=== PATIENT | female | born 1955 | race Caucasian/White ===

== ENCOUNTER → 2017-02-23 | Outpatient (CLI) | payer MEDICAID ==
[2017-02-23 10:45] LABS: Basophils % (A) 1 %; CH 31.8; Eosinophils # (A) 0.1 k/uL (0-0.7); Eosinophils % (A) 2 %; HCT 40.4 % (34.0-46.0); HDW 2.85; HGB 13.1 gm/dL (11.4-16.0); Hypochromasia Slight; Luc # (Auto) 0.14; Luc % (Auto) 2; Lymphocytes # (A) 2.2 k/uL (1.0-4.8); Lymphocytes % (A) 35 %; MCH 32.3 pg (25.0-35.0); MCHC 32.4 g/dL (31.0-37.0); MCV 99.8 fL (80.0-100.0); Mean Platelet Volume 6.3; Monocytes # (A) 0.4 k/uL (0-1.0); Monocytes % (A) 6 %; Neutrophils # (A) 3.4 k/uL (1.3-7.7); Neutrophils % (A) 54 %; RBC 4.05 m/uL (3.80-5.40); RDW 13.1 % (11.5-15.5); WBC 6.3 k/uL (3.8-10.6); WBC (Perox) 6.35
[2017-02-23 11:12] LABS: ALT 25 U/L (9-52); AST 29 U/L (14-36); Alkaline Phosphatase 76 U/L (38-126); Anion Gap 9 mmol/L; Bilirubin, Delta 0.3 mg/dL (0.0-0.2); Blood Urea Nitrogen 19 mg/dL (7-17); Calcium 9.7 mg/dL (8.4-10.2); Carbon Dioxide 29 mmol/L (22-30); Chloride 105 mmol/L (98-107); Cholesterol 266 mg/dL (<200); Glucose 96 mg/dL (74-99); HDL Cholesterol 61 mg/dL (40-60); Non-African American GFR(MDRD) >60 (>60 ml/min/1.73 sqM); Phosphorous 3.6 mg/dL (2.5-4.5); Potassium 4.4 mmol/L (3.5-5.1); Sodium 143 mmol/L (137-145); Total Bilirubin 0.6 mg/dL (0.2-1.3); Total Protein 7.8 g/dL (6.3-8.2); Triglycerides 119 mg/dL (<150)
== END | disposition home or self-care (01) ==
LOC: LABWHC1 10:11
PROVIDERS: ATTEND Family Medicine
DX: Z00.00 Encounter for general adult medical examination without abnormal findings (principal); E03.9 Hypothyroidism, unspecified
CPT/HCPCS: 36415; 80053; 80061; 82248; 84100; 84443; 85025

== ENCOUNTER → 2017-11-22 | Outpatient (CLI) | payer MEDICAID ==
--- NOTE | 2017-11-22 13:27 | XR ---
EXAMINATION TYPE: XR chest 2V DATE OF EXAM: 11/22/2017 COMPARISON: 06/27/2014 HISTORY: Shortness of breath for one week TECHNIQUE: Frontal and lateral views of the chest are obtained. FINDINGS: There is new mild increased interstitial lung markings in comparison to the prior of 014. There is no focal air space opacity, pleural effusion, or pneumothorax seen. The cardiac silhou ette size is within normal limits. The osseous structures are intact. Mild multilevel degenerative changes of the thoracic spine are noted. IMPRESSION: New mild increased interstitial lung markings. These could relate to mild fluid overload or atypical pneumonia.
== END | disposition home or self-care (01) ==
LOC: RADXRMAIN 12:19
PROVIDERS: ATTEND Family Medicine
DX: J98.4 Other disorders of lung (principal); R06.02 Shortness of breath
CPT/HCPCS: 71046

== ENCOUNTER → 2017-12-02 | Outpatient (CLI) | payer MEDICAID ==
--- NOTE | 2017-12-02 20:45 | MR ---
EXAMINATION TYPE: MR brain and iac wo/w con DATE OF EXAM: 12/02/2017 COMPARISON: NONE HISTORY: Rt sided hearing loss/acoustic nerve disorder CONTRAST: Performed utilizing 9 mL intravenous Gadavist gadolinium contrast. TECHNIQUE: Multiplanar, multiecho imaging on a 3.0 Mulu magnet is performed through the brain. Atte ntion is paid to the internal auditory canals with thin section imaging. Postcontrast imaging is per formed through the internal auditory canals. FINDINGS:Craniovertebral junction is normal. The pituitary is normal. Diffusion-weighted imaging is performed. No suspicious hyperintensity is present to suggest an acute intracranial infarct or acute ischemic area. Signal within the brain has scattered areas of hyperintensity which are non-specific but could be rel ated to microvascular ischemic changes. Thin section imaging is performed through the internal auditory canals and cerebellar pontine angles. No cerebellar pontine angle masses are evident. The internal auditory canals appear normal without expansion or erosion. Postcontrast imaging was performed. No suspicious enhancement is evident within the internal audito ry canals or the included portions of the brain. Paranasal sinuses and mastoid air cells are clear. IMPRESSIONS: 1. Normal internal auditory canals. 2. Scattered subcortical punctate white matter changes, likely on the basis of chronic white matter i schemic change.
== END | disposition home or self-care (01) ==
LOC: RADMRIMAIN 14:42
PROVIDERS: ATTEND Nurse Practitioner Family
DX: R90.89 Other abnormal findings on diagnostic imaging of central nervous system (principal); H93.3X1 Disorders of right acoustic nerve; H91.91 Unspecified hearing loss, right ear
CPT/HCPCS: 82565; 70553; 36415; A9581

== ENCOUNTER → 2018-08-03 | Outpatient (CLI) | payer MEDICARE ==
[2018-08-03 12:02] LABS: Basophils % (A) 0 %; Eosinophils # (A) 0.1 k/uL (0-0.7); Eosinophils % (A) 1 %; HCT 41.3 % (34.0-46.0); HGB 13.3 gm/dL (11.4-16.0); Lymphocytes # (A) 2.1 k/uL (1.0-4.8); Lymphocytes % (A) 30 %; MCH 31.4 pg (25.0-35.0); MCHC 32.3 g/dL (31.0-37.0); MCV 97.4 fL (80.0-100.0); Mean Platelet Volume 6.6; Monocytes # (A) 0.4 k/uL (0-1.0); Monocytes % (A) 6 %; Neutrophils # (A) 4.3 k/uL (1.3-7.7); Neutrophils % (A) 61 %; Platelet Count 273 k/uL (150-450); RBC 4.24 m/uL (3.80-5.40); RDW 12.7 % (11.5-15.5); WBC 7.1 k/uL (3.8-10.6)
[2018-08-03 12:54] LABS: Albumin 4.1 g/dL (3.5-5.0); C Reactive Protein 9.6 mg/L (<10.0); Calcium 9.8 mg/dL (8.4-10.2); Potassium 4.9 mmol/L (3.5-5.1); Total Bilirubin 0.5 mg/dL (0.2-1.3); Total Protein 7.4 g/dL (6.3-8.2)
[2018-08-03 14:18] LABS: Erythrocyte Sedimentation Rate 28 mm/hr (0-20)
[2018-08-03 16:26] LABS: Rheumatoid Factor 6 IU/mL (0-15)
[2018-08-03 20:55] LABS: Cyclic Citrullinated Pep IgG NEGATIVE (NEGATIVE)
== END ==
LOC: LABWHC1 10:45
PROVIDERS: ATTEND Family Medicine
DX: I10 Essential (primary) hypertension (principal); E03.9 Hypothyroidism, unspecified; M25.50 Pain in unspecified joint
CPT/HCPCS: 36415; 80053; 80061; 84443; 85025; 85652; 86038; 86140; 86200; 86431

== ENCOUNTER → 2018-08-18 | Outpatient (CLI) | payer MEDICARE ==
--- NOTE | 2018-08-21 09:36 | MM ---
Reason for exam: screening (asymptomatic). Last mammogram was performed 11 months ago. History: Patient is postmenopausal. Family history of breast cancer in paternal cousin at age 40. Reductions of both breasts, December 2016. Took hormonal contraceptives for 5 years beginning at age 17. Took estrogen for 4 years beginning at age 43. Physical Findings: A clinical breast exam by your physician is recommended on an annual basis and results should be correlated with mammographic findings. MG 3D Screening Mammo W/Cad Bilateral CC and MLO view(s) were taken. Prior study comparison: September 29, 2017, bilateral MG 3d screening mammo w/cad. March 18, 2016, bilateral MG screening mammo w CAD. The breast tissue is heterogeneously dense. This may lower the sensitivity of mammography. There is no discrete abnormality. No significant changes when compared with prior studies. ASSESSMENT: Negative, BI-RAD 1 RECOMMENDATION: Routine screening mammogram of both breasts in 1 year.
== END | disposition home or self-care (01) ==
LOC: RADMAMWWP 09:56
PROVIDERS: ATTEND Family Medicine
DX: Z12.31 Encounter for screening mammogram for malignant neoplasm of breast (principal)
CPT/HCPCS: 77063; 77067

== ENCOUNTER → 2019-02-05 | Outpatient (CLI) | payer MEDICARE ==
--- NOTE | 2019-02-05 11:51 | XR ---
EXAMINATION TYPE: XR chest 2V DATE OF EXAM: 02/05/2019 COMPARISON: Chest x-ray November 22, 2017 HISTORY: Recent pneumonia with chest pain on exertion and shortness of breath TECHNIQUE: Frontal and lateral views of the chest are obtained. FINDINGS: Diminished inspiration is seen on current study with central vascular congestion. No new f ocal airspace opacity, pleural effusion, or pneumothorax. The cardiac silhouette size is stable and upper limits of normal. Cholecystectomy clips are redemonstrated. The osseous structures are intact. IMPRESSION: New central vascular congestion may be on basis of poor inspiration.
== END | disposition home or self-care (01) ==
LOC: RADXRMAIN 11:34
PROVIDERS: ATTEND Family Medicine
DX: I99.8 Other disorder of circulatory system (principal)
CPT/HCPCS: 71046

== ENCOUNTER → 2019-06-06 | Outpatient (CLI) | payer MEDICARE ==
--- NOTE | 2019-06-06 13:37 | XR ---
EXAMINATION TYPE: XR Hip Complete RT DATE OF EXAM: 06/06/2019 CLINICAL HISTORY: Low back pain. Right hip pain. TECHNIQUE: AP and frogleg views of the right hip are obtained. COMPARISON: None. FINDINGS: There is no acute fracture/dislocation evident in the right hip. Mild joint space narrowin g seen at the inferior femoral acetabular joint. The overlying soft tissue appears unremarkable. IMPRESSION: Mild age-related osteoarthritis of the right hip.
--- NOTE | 2019-06-06 13:39 | XR ---
EXAMINATION TYPE: XR lumbosacral spine min 4V DATE OF EXAM: 06/06/2019 CLINICAL HISTORY: Right-sided sciatic pain. TECHNIQUE: Frontal, lateral, and oblique images of the lumbar spine are obtained. COMPARISON: MRI lumbar spine dated 09/13/2011 FINDINGS: There are 5 lumbar type vertebral bodies identified. No acute fracture or dislocation. Int erval worsening of facet arthropathy, anterior marginal osteophyte and disc space narrowing throughou t the lumbar spine most severe at L5-S1. No evidence of spondylolysis. Pedicles and sacroiliac joints are appear intact. Surgical clips are seen in the right upper quadrant. Oblique views are suboptimal for neural foraminal narrowing. IMPRESSION: Interval worsening of lumbar spondylosis most severe at L5-S1. If further evaluation is r equired MRI of the lumbar spine may be obtained.
== END ==
LOC: RADXRMAIN 10:45
PROVIDERS: ATTEND Family Medicine
DX: M47.817 Spondylosis without myelopathy or radiculopathy, lumbosacral region (principal); M16.11 Unilateral primary osteoarthritis, right hip
CPT/HCPCS: 72110; 73502

== ENCOUNTER → 2019-07-19 | Outpatient (CLI) | payer MEDICARE ==
--- NOTE | 2019-07-19 15:52 | MR ---
EXAMINATION TYPE: MR lumbar spine wo con DATE OF EXAM: 07/19/2019 COMPARISON: MRI of the lumbar spine dated 09/13/2011 HISTORY: Chronic low back pain, no trauma TECHNIQUE: Multiplanar, multisequence images of the lumbar spine were acquired. FINDINGS: Lumbar spine vertebral bodies maintain normal vertebral body heights and alignment. Modic t ype II degenerative endplate changes are seen throughout. Conus medullaris is unremarkable terminatin g at L1. L1-L2: Disc desiccation without neural foraminal narrowing or spinal canal stenosis. No focal disc he rniation. L2-L3: Disc desiccation without focal disc herniation. There is also a broad-based disc bulge creatin g mild left and minimal right neural foraminal narrowing. No spinal canal stenosis. L3-L4: Broad-based disc bulge, ligamentum flavum buckling, and facet arthropathy are seen creating mi ld bilateral neural foraminal narrowing without spinal canal stenosis. L4-L5: There is a broad-based disc bulge, ligamentum flavum buckling and facet arthropathy contributi ng to mild spinal canal stenosis and mild bilateral neural from narrowing. L5-S1: There is a left eccentric broad-based disc bulge and left lateral disc herniation. Facet arthr opathy and ligamentum flavum buckling are also seen and there is mild bilateral neural foraminal narr owing without spinal canal stenosis. IMPRESSION: 1. Left lateral disc herniation at L5-S1. Mild neural foraminal narrowing is seen bilaterally at this level. 2. Degenerative disc disease at L4-L5 with ligamentum flavum buckling and facet arthropathy that also contribute to mild spinal canal stenosis and mild bilateral neural foraminal narrowing. 3. Degenerative disc disease within the remainder the lumbar spine is mild.
== END | disposition home or self-care (01) ==
LOC: RADMRIMAIN 11:59
PROVIDERS: ATTEND Family Medicine
DX: M48.061 Spinal stenosis, lumbar region without neurogenic claudication (principal); M51.27 Other intervertebral disc displacement, lumbosacral region; M51.36 Other intervertebral disc degeneration, lumbar region; M46.96 Unspecified inflammatory spondylopathy, lumbar region
CPT/HCPCS: 72148

== ENCOUNTER → 2019-08-17 | Outpatient (CLI) | payer MEDICARE ==
[2019-08-17 12:09] LABS: Basophils % (A) 0 %; Eosinophils # (A) 0.2 k/uL (0-0.7); Eosinophils % (A) 2 %; HCT 39.9 % (34.0-46.0); HGB 13.2 gm/dL (11.4-16.0); Lymphocytes # (A) 2.9 k/uL (1.0-4.8); Lymphocytes % (A) 42 %; MCH 32.2 pg (25.0-35.0); MCV 97.6 fL (80.0-100.0); Mean Platelet Volume 6.1; Monocytes # (A) 0.4 k/uL (0-1.0); Monocytes % (A) 6 %; Neutrophils # (A) 3.2 k/uL (1.3-7.7); Neutrophils % (A) 47 %; Platelet Count 266 k/uL (150-450); RBC 4.09 m/uL (3.80-5.40); RDW 12.7 % (11.5-15.5); WBC 6.8 k/uL (3.8-10.6)
[2019-08-17 16:41] LABS: African American GFR (CKD) 77.2 (60.0-200.0); Albumin 4.2 g/dL (3.80-4.90); Albumin/Globulin Ratio 1.91 (1.60-3.17); Anion Gap 8.2 mmol/L (4.00-12.00); BUN/Creat Ratio 18.89 Ratio (12.00-20.00); Carbon Dioxide 28.8 mmol/L (21.6-31.8); Chol/HDL Ratio 3.3; Globulin 2.2 g/dL (1.6-3.3); LDL Cholesterol,Calculated 152.6 mg/dL (0.0-131.0); Potassium 4.5 mmol/L (3.5-5.5); Total Bilirubin 0.4 mg/dL (0.2-1.2); Total Protein 6.4 g/dL (6.2-8.2); VLDL Calculation 15.4 mg/dL (5.00-40.00)
== END | disposition home or self-care (01) ==
LOC: LABWHC1 11:34
PROVIDERS: ATTEND Family Medicine
DX: I10 Essential (primary) hypertension (principal); E78.5 Hyperlipidemia, unspecified; E03.9 Hypothyroidism, unspecified; Z11.59 Encounter for screening for other viral diseases
CPT/HCPCS: 36415; 80053; 80061; 84443; 85025; 86803

== ENCOUNTER → 2019-08-27 | Outpatient (CLI) | payer MEDICARE ==
--- NOTE | 2019-08-28 07:55 | BD ---
EXAMINATION TYPE: Axial Bone Density DATE OF EXAM: 08/27/2019 COMPARISON: 03/05/2014 DEXA bone scan. CLINICAL HISTORY: Known osteopenia. Height: 63.2 IN Weight: 203 LBS RISK FACTORS HISTORY OF: Active: YES Diet low in dairy products/other sources of calcium: YES Postmenopausal woman: TOTAL HYST AGE 46 Take estrogen and/or progesterone medications: NOT NOW How long: TOOK HORMONES AGE 48-49 MEDICATIONS: Thyroid Medications: YES Which medication: Levothyroxine How Lon + YEARS Additional Medications: LISINOPRIL, LEVOTHYROXINE, REQUIP, KLONOPIN EXAM MEASUREMENTS: Bone mineral densitometry was performed using the [employer] System. Bone mineral density as measured about the Lumbar spine is: ----- L1-L4(G/cm2): 1.118 T Score Values are as follows: ----- L2: -1.3 ----- L3: -0.2 ----- L4: 0.5 ----- L1-L4: -0.5 Bone mineral density has: Decreased -1.9ince study of: 03/05/2014 Bone mineral density about the R hip (g/cm2): 0.862 Bone mineral density about the L hip (g/cm2): 0.809 T Score values are as follows: -----R Neck: -1.3 -----L Neck: -1.6 -----R Total: -1.1 -----L Total: -1.2 Bone mineral density has: Decreased -0.6ince study of: 03/05/2014 IMPRESSION: Osteopenia (T Score between -2.5 and -1) remains present. There remains slightly increased risk of fracture and the patient may be considered for treatment. Re-Screen 2-5 years. NOTE: T-SCORE=SD OF THE YOUNG ADULT MEAN.
--- NOTE | 2019-08-28 10:39 | MM ---
Reason for exam: screening (asymptomatic). Last mammogram was performed 1 year ago. History: Patient is postmenopausal. Family history of breast cancer in paternal cousin at age 40. Reductions of both breasts, December 2016. Took hormonal contraceptives for 5 years beginning at age 17. Took estrogen for 4 years beginning at age 43. Physical Findings: A clinical breast exam by your physician is recommended on an annual basis and results should be correlated with mammographic findings. MG 3D Screening Mammo W/Cad Bilateral CC and MLO view(s) were taken. Prior study comparison: August 18, 2018, bilateral MG 3d screening mammo w/cad. September 29, 2017, bilateral MG 3d screening mammo w/cad. There are scattered fibroglandular densities. There are benign appearing round calcifications bilaterally. Asymmetric breast tissue in the right breast, stable. There is no discrete abnormality. ASSESSMENT: Benign, BI-RAD 2 RECOMMENDATION: Routine screening mammogram of both breasts in 1 year.
== END | disposition home or self-care (01) ==
LOC: RADMAMWWP 15:15
PROVIDERS: ATTEND Family Medicine
DX: Z12.39 Encounter for other screening for malignant neoplasm of breast (principal); R92.8 Other abnormal and inconclusive findings on diagnostic imaging of breast; M85.89 Other specified disorders of bone density and structure, multiple sites
CPT/HCPCS: 77063; 77067; 77080

== ENCOUNTER → 2019-11-19 | Outpatient (CLI) | payer MEDICARE ==
--- NOTE | 2019-11-19 15:41 | P.PAINCN ---
History of Present Illness - Reason for Consult Consult date: 11/19/19 - History of Present Illness This is an initial consultation visit for this 64 was also male with a chronic history of significant low back pain, patient reported that the back pain started in 2010, she denies any initiating event but she reported pain at that time used to be improved after physical therapy and chiropractics, over the last several months he started complaining of increased intensity of the pain and the pain currently radiates to the posterior lateral aspect of her lower extremity, she denies any fever or night sweats she denies any change in the bowel movement or urination, no motor or sensory deficit, the pain is not improved with the current pain medication Ackerly and Motrin, and is not improved with physical therapy Past Medical History Past Medical History: Hypertension, Musculoskeletal Disorder, Osteoarthritis (OA), Pneumonia, Thyroid Disorder Additional Past Medical History / Comment(s): hypothyroidism, restless leg syndrome osteoporosis, pneumonia 2018, herniated disc & bulging lumbar discs History of Any Multi-Drug Resistant Organisms: None Reported Past Surgical History: Appendectomy, Bladder Surgery, Breast Surgery, Cholecystectomy, Hysterectomy, Joint Replacement, Orthopedic Surgery Additional Past Surgical History / Comment(s): arthroscopies left knee,hemorrhoidectomy;bladder suspension, hemorrhoidectomy, left knee replaced 2013, breast reduction Past Anesthesia/Blood Transfusion Reactions: Motion Sickness, Postoperative Nausea & Vomiting (PONV) Additional Past Anesthesia/Blood Transfusion Reaction / Comm: one time episode after melvi. Past Psychological History: No Psychological Hx Reported Smoking Status: Former smoker Past Alcohol Use History: None Reported Additional Past Alcohol Use History / Comment(s): quit smoker 1991, smoked 18 yrs. 1ppd Past Drug Use History: None Reported - Past Family History Mother Family Medical History: Coronary Artery Disease (CAD) Father Family Medical History: Hypertension Sister(s) Family Medical History: No Reported History Brother(s) Family Medical History: Cancer Medications and Allergies Home Medications Medication Instructions Recorded Confirmed Type Levothyroxine Sodium [Synthroid] 50 mcg PO DAILY 07/10/14 11/15/19 History clonazePAM [KlonoPIN] 0.5 mg PO HS 07/10/14 11/15/19 History Lisinopril [Zestril] 10 mg PO DAILY 10/03/14 11/15/19 History HYDROcodone/APAP 7.5-325MG [Ackerly 1 tab PO Q6HR PRN 11/15/19 11/15/19 History 7.5-325] Ibuprofen [Motrin] 600 mg PO Q8HR PRN 11/15/19 11/15/19 History rOPINIRole HCL [Requip] 1 mg PO HS 11/15/19 11/15/19 History Allergies Allergy/AdvReac Type Severity Reaction Status Date / Time Sulfa (Sulfonamide Allergy lethargy,na Verified 11/15/19 15:08 Antibiotics) usea Physical Exam REVIEW OF ORGAN SYSTEMS: CONSTITUTIONAL: No fevers or chills. No recent weight loss. EYES: denies troubles with vision. HEENT: No difficulties with hearing. No nosebleeds. No difficulty swallowing. RESPIRATORY: Denies any troubles with breathing or dyspnea on exertion. CARDIOVASCULAR: Denies any chest pain, palpitations, or recent heart attacks. GASTROINTESTINAL: Denies fatty food intolerance. Has change in bowel habits and gas bloat. GENITOURINARY: Denies any blood in urine. Has increased urinary frequency. NEUROLOGICAL: no numbness , no tingling. No seizure disorders or headaches. MUSCULOSKELETAL: Has back pain. SKIN:no skin cancer. No rash. PSYCHIATRIC: Denies current depression or suicidal thoughts. ENDOCRINE: Denies current thyroid disorders. Denies any blood sugar glucose intolerance. HEME/LYMPHATIC: Denies any lumps and bumps around the neck. History of deep venous thrombosis. ALLERGY/IMMUNOLOGY: No immunoglobulin therapy. No immune deficiencies. BREAST: Denies current breast lumps, pain or nipple discharge. Physical Examinations : Constitutiona : Cooperative , not in acute distress . HEENT : nech : supple , no Lymphadenopathy , normal thyroid size . : eyes no ptosis , no icterus, no photophobia . neurologic : Cranial nerve II to XII intact , no focal neurological deffecit . psychatric : alert , oriented X 3 , appropriate affect , intact judgment and insight . Lymphatic : no Lymphadenopathy . musculoskeltal : . Lumber spine moter stegnth lower extremities ,thigh and legs 5/5 Right side , 5/5 Left side deep tendon reflexes : normal Knee Jerk , normal ankle Jerk lumber facet Loading Test= positive Right , positive Left Range of motion of the lumbar spine Flexion 60 degrees, extension 30 degrees strait leg raising test = negative bilaterally Fabere test= negative bilaterally . Tenderness over the right sacroiliac joint Results Comments: MRI of the lumbar spine reviewed= multilevel lumbar bulging disc disease, and L5-S1 lumbar herniated disc disease and multilevel lumbar facet arthropathy Assessment and Plan Plan: Assessment and plan= lumbar herniated disc disease. Lumbar degenerative disc disease. Lumbar spondylosis with lumbar facet arthropathy without myelopathy. Patient could benefit from lumbar epidural steroid injections under fluoroscopy guidance at L5-S1 , and we'll reevaluate her response. if She has no benefit from it, and we should consider doing diagnostic medial branch block lumbar area Time with Patient: Greater than 30 PQRS Measure Charge Sheet Measure #130: Documentation of Current Meds in Medical Chart: Patient's medications documented in chart Measure #226: Tobacco Use: Screen & Cessation Intervention: Pt not a tobacco user Measure #111: Pneumonia Vaccination: Pneumococcal vaccine NOT administered or previously given Measure #47: Advance Care Plan: Advance care planning discussed & documented, pt chose/unable to give Measure #412: Opioid Treatment Agreement: No documentation of signed opioid treatment agreement Measure #408: Opioid Therapy Follow-up Evaluation: Patient had NO f/u eval minimum every 3 months during opioid therapy Measure #317: Preventitive Care & Scrn High Bld Press & F/U: Pre-hypertensive or hypertensive BP documented, pt will f/u with PCP Measure #128: Body Mass Index (BMI) Screening & Follow-up: BMI documented ABOVE normal parameters - f/u documented Measure #131: Pain Assessment & Follow-up: Pain positive & plan documented, Follow-up scheduled Measure #431: Unhealthy Alcohol Use Preventative Care & Scrn: Patient not identified as an unhealthy alcohol user PQRS Narrative: Smoking Status Former smoker Pain Intensity [Right Lower 4 Back] Scale Used Numeric (1 - 10) Hx Alcohol Use (MH) No Home Medications: Ambulatory Orders Levothyroxine Sodium [Synthroid] 50 mcg PO DAILY 07/10/14 clonazePAM [KlonoPIN] 0.5 mg PO HS 07/10/14 Lisinopril [Zestril] 10 mg PO DAILY 10/03/14 HYDROcodone/APAP 7.5-325MG [Ackerly 7.5-325] 1 tab PO Q6HR PRN 11/15/19 Ibuprofen [Motrin] 600 mg PO Q8HR PRN 11/15/19 rOPINIRole HCL [Requip] 1 mg PO HS 11/15/19
== END | disposition home or self-care (01) ==
LOC: PNWHC3 12:53
PROVIDERS: ATTEND Specialist
DX: G89.29 Other chronic pain (principal); M51.26 Other intervertebral disc displacement, lumbar region; M51.36 Other intervertebral disc degeneration, lumbar region; M47.816 Spondylosis without myelopathy or radiculopathy, lumbar region; M46.96 Unspecified inflammatory spondylopathy, lumbar region; Z87.891 Personal history of nicotine dependence; Z79.899 Other long term (current) drug therapy; Z88.2 Allergy status to sulfonamides
CPT/HCPCS: 99211

== ENCOUNTER 2019-11-29 07:39 | Day surgery (SDC) | payer MEDICARE ==
[2019-11-28 10:09] VITALS: BMI 35.4
[~2019-11-29 07:39] MED LIST: IOPAMIDOL M200 10 ML VIAL ONE; LACTATED RINGERS 1,000 ML IV SCH; LIDOCAINE 1% INJ 10MG/ML (20 ML MDV) ONE; methylPREDNISolone ACETATE 80 MG/ML 1 ML VIAL ONE
[2019-11-29 08:06] VITALS: RESP 16; TEMP 98.1
[2019-11-29 08:48] VITALS: BP 119/68; PULSE 78
--- NOTE | 2019-11-29 09:15 | FL ---
EXAMINATION TYPE: FL guided pain mgmt statistic DATE OF EXAM: 11/29/2019 CLINICAL HISTORY: Low back pain. TECHNIQUE: Fluoroscopy. COMPARISON: None. FINDINGS: Fluoroscopic guidance was provided during pain relief procedure performed by Dr. Veliz. A t otal of 4 seconds of fluoroscopic time was utilized during the procedure and 3 spot images are acquir ed. IMPRESSION: As Above.
--- NOTE | 2019-11-29 10:39 | P.PCN ---
Date of Procedure: 11/29/19 Procedure(s) Performed: PREOPERATIVE DIAGNOSIS: 1- Lumbar radiculopathy, Lumbar Degenerative Disc Diseases 2-Lumbar spondylosis with Facet arthropathy without myelopathy POSTOPERATIVE DIAGNOSIS: 1-Lumber Degenerative Disc Diseases 2-Lumbar spondylosis with Facet arthropathy without myelopathy PROCEDURE 1. Lumbar epidural steroid injection under fluoroscopic guidance at the L5-S1 level using a right paramedian approach 2. Lumbar epidurogram. ANESTHESIA: Local with 1% lidocaine 3 ml, no IV sedation was used Fluoroscopy was used for the procedure and images were saved in the radiology portion of the chart. EBL: Minimal PROCEDURE INDICATION: The patient with low back pain and radiculitis symptoms unresponsive to conservative treatment. Fluoroscopy was used to optimize visualization of the needle placement and to maximize safety. PROCEDURE DESCRIPTION / TECHNIQUE: The patient was seen and identified in the preoperative area. Risks, benefits, complications including but not limited to infections ,bleeding ,allergic reaction to the medications ,nerve damage and incomplete pain releif , and alternatives were discussed with the patient. The patient agreed to proceed with the procedure and signed the consent. Vital signs were stable. Patient was taken to the OR and time out was completed. The patient was placed in the prone position on procedure table and a pillow was placed under the abdomen to reduce lumbar lordosis. The lumbosacral area was prepped and draped in the usual sterile fashion. Vitals were closely monitored during the procedure. Using anterior-posterior fluoroscopy, the L5-S1 interlaminar space was identified and the skin over this site was marked and then infiltrated with 1% lidocaine subcutaneously. Subsequently, a 20-gauge 3.5" Tuohy epidural needle was inserted and advanced toward the epidural space using the loss of resistance technique and guided by AP and lateral/ oblique fluoroscopy. The correct needle position in the epidural space was verified with the injection of 2 mL of the water soluble contrast dye Isovue 200 contrast under live fluoroscopy, observing an excellent epidurogram. Then, after negative aspiration for blood and CSF and in the absence of paresthesias, a 5 ml mixture containing 80 mg of Depo-medrol , 3 ml of preservative free Normal Saline, and 1 ml of preservative free lidocaine 1% solution was injected and a washout epidurogram was seen. Needle was withdrawn intact, skin was cleansed, and bandages were applied. COMPLICATIONS: None DISPOSITION / PLANS: The patient was placed in a supine position and transferred to the recovery area in a stable condition for observation. There was no evidence of lower extremity motor or sensory deficit after the procedure. Patient was discharged from the recovery room after meeting discharge criteria. Home discharge instructions were given to the patient by the staff. The patient will schedule a follow up in the clinic in 2-4 weeks.
== END 2019-11-29 08:50 | disposition home or self-care (01) ==
LOC: ORPAIN 07:39
PROVIDERS: ATTEND Anesthesiology
DX: M47.26 Other spondylosis with radiculopathy, lumbar region (principal); M51.16 Intervertebral disc disorders with radiculopathy, lumbar region
CPT/HCPCS: 62323; J1040; J2001; Q9966

== ENCOUNTER → 2020-03-21 | Outpatient (CLI) | payer MEDICARE | END | disposition home or self-care (01) | LOC: LABWHC1 14:21 | PROVIDERS: ATTEND Family Medicine | DX: Z11.59 Encounter for screening for other viral diseases (principal) ==

== ENCOUNTER → 2020-03-28 | Outpatient (CLI) | payer MEDICARE | END | disposition home or self-care (01) | LOC: LABWHC1 11:17 | PROVIDERS: ATTEND Family Medicine | DX: Z11.59 Encounter for screening for other viral diseases (principal) ==

== ENCOUNTER 2020-04-01 09:52 | Day surgery (SDC) | payer MEDICARE ==
[2020-03-24 12:50] VITALS: BMI 34.5
[2020-04-01 10:09] VITALS: RESP 16; TEMP 97.2
[2020-04-01] MEDS ORDERED: IOPAMIDOL M200 10 ML VIAL ONE (10:46)
[2020-04-01] MEDS ORDERED: TRIAMCINOLONE ACETONIDE 40 MG/ML 1 ML VIAL ONE (10:46)
[2020-04-01] MEDS ORDERED: methylPREDNISolone ACETATE 40 MG/ML 1 ML VIAL ONE (10:46)
--- NOTE | 2020-04-01 11:11 | P.PCN ---
Date of Procedure: 04/01/20 Description of Procedure: PREOPERATIVE DIAGNOSIS: 1-lumbar radiculopathy 2-Lumbar spondylosis with Facet arthropathy without myelopathy POSTOPERATIVE DIAGNOSIS: Lumbar radiculopathy 2-Lumbar spondylosis with Facet arthropathy without myelopathy PROCEDURE 1. Lumbar epidural steroid injection under fluoroscopic guidance at the L5-S1 level. 2. Lumbar epidurogram. ANESTHESIA: Local with 1% lidocaine 3 ml, no IV sedation EBL: Minimal PROCEDURE INDICATION: The patient with low back pain and radiculitis symptoms unresponsive to conservative treatment. Fluoroscopy was used to optimize visualization of the needle placement and to maximize safety. PROCEDURE DESCRIPTION / TECHNIQUE: The patient was seen and identified in the preoperative area. Risks, benefits, complications including but not limited to infections ,bleeding ,allergic reaction to the medications ,nerve damage and not complete pain releife , and alternatives were discussed with the patient. The patient agreed to proceed with the procedure and signed the consent. IV was started, and vital signs were stable. Patient was taken to the OR and time out was completed. The patient was placed in the prone position on procedure table and a pillow was placed under the abdomen to reduce lumbar lordosis. The lumbosacral area was prepped and draped in the usual sterile fashion.ere closely monitored during the procedure. Conscious sedation was used during the procedure to decrease patients anxiety. Vital signs was monitered during the entire procedure. Using anterior-posterior fluoroscopy, the L5-S1 interlaminar space was identified and the skin over this site was marked and then infiltrated with 1% lidocaine subcutaneously. Subsequently, a 20-gauge Tuohy epidural needle was inserted and advanced toward the epidural space using the ``Loss of resistance technique and guided by AP and lateral fluoroscopy. The correct needle position in the epidural space was verified with the injection of 2 mL of the water soluble contrast dye Omnipaque 180 contrast and observing an excellent epidurogram with the epidural spread of the dye, after negative aspiration for blood and CSF and in the absence of paresthesias. Again after negative aspiration, a 5 ml mixture containing 40mg Kenalog and 4 ml of preservative free Normal Saline was injected and a washout of epidurogram was seen. Needle was withdrawn intact, skin was cleansed, and bandages were applied. COMPLICATIONS: None DISPOSITION / PLANS: The patient was placed in a supine position and transferred to the recovery area in a stable condition for observation. There was no evidence of lower extremity motor or sensory deficit after the procedure. Tameka mars was discharged from the recovery room after meeting discharge criteria. Home discharge instructions were given to the patient by the staff. The patient was reexamined prior to discharge. Will repeat procedure in 1-2 weeks. Consider lumbar facet injections.
[2020-04-01] MEDS ORDERED: LACTATED RINGERS 1,000 ML IV SCH (11:15)
[2020-04-01 11:19] VITALS: BP 111/67; PULSE 70
--- NOTE | 2020-04-01 12:12 | FL ---
EXAMINATION TYPE: FL guided pain mgmt statistic DATE OF EXAM: 04/01/2020 HISTORY: Fluoroscopy time 3 seconds of fluoroscopy provided. IMPRESSION: 1. Fluoroscopy time.
== END 2020-04-01 11:26 | disposition home or self-care (01) ==
LOC: ORPAIN 09:52
PROVIDERS: ATTEND Anesthesiology
DX: M47.26 Other spondylosis with radiculopathy, lumbar region (principal); Z88.1 Allergy status to other antibiotic agents; Z88.2 Allergy status to sulfonamides
CPT/HCPCS: 62323; J3301; Q9966

== ENCOUNTER 2020-04-24 08:41 | Day surgery (SDC) | payer MEDICARE ==
[2020-04-22 12:56] VITALS: BMI 33.1
[~2020-04-24 08:41] MED LIST changes: -IOPAMIDOL M200 10 ML VIAL ONE; -LIDOCAINE 1% INJ 10MG/ML (20 ML MDV) ONE; -methylPREDNISolone ACETATE 80 MG/ML 1 ML VIAL ONE
[2020-04-24 09:06] VITALS: TEMP 97.1
[2020-04-24] MEDS ORDERED: methylPREDNISolone ACETATE 40 MG/ML 1 ML VIAL ONE (09:24)
[2020-04-24] MEDS ORDERED: IOPAMIDOL M200 10 ML VIAL ONE (09:24)
--- NOTE | 2020-04-24 10:05 | P.PCN ---
Date of Procedure: 04/24/20 Procedure(s) Performed: PREOPERATIVE DIAGNOSIS: 1- Lumbar radiculopathy, Lumbar Degenerative Disc Diseases 2-Lumbar spondylosis with Facet arthropathy without myelopathy POSTOPERATIVE DIAGNOSIS: 1-Lumber Degenerative Disc Diseases 2-Lumbar spondylosis with Facet arthropathy without myelopathy PROCEDURE 1. Lumbar epidural steroid injection under fluoroscopic guidance at the L5-S1 level using a right paramedian approach 2. Lumbar epidurogram. ANESTHESIA: Local with 1% lidocaine 3 ml, no IV sedation was used Fluoroscopy was used for the procedure and images were saved in the radiology portion of the chart. EBL: Minimal PROCEDURE INDICATION: The patient with low back pain and radiculitis symptoms unresponsive to conservative treatment. Fluoroscopy was used to optimize visualization of the needle placement and to maximize safety. PROCEDURE DESCRIPTION / TECHNIQUE: The patient was seen and identified in the preoperative area. Risks, benefits, complications including but not limited to infections ,bleeding ,allergic reaction to the medications ,nerve damage and incomplete pain releif , and alternatives were discussed with the patient. The patient agreed to proceed with the procedure and signed the consent. Vital signs were stable. Patient was taken to the OR and time out was completed. The patient was placed in the prone position on procedure table and a pillow was placed under the abdomen to reduce lumbar lordosis. The lumbosacral area was prepped and draped in the usual sterile fashion. Vitals were closely monitored during the procedure. Using anterior-posterior fluoroscopy, the L5-S1 interlaminar space was identified and the skin over this site was marked and then infiltrated with 1% lidocaine subcutaneously. Subsequently, a 20-gauge 3.5" Tuohy epidural needle was inserted and advanced toward the epidural space using the loss of resistance technique and guided by AP and lateral/ oblique fluoroscopy. The correct needle position in the epidural space was verified with the injection of 2 mL of the water soluble contrast dye Isovue 200 contrast under live fluoroscopy, observing an excellent epidurogram. Then, after negative aspiration for blood and CSF and in the absence of paresthesias, a 5 ml mixture containing 80 mg of Depo-medrol , 3 ml of preservative free Normal Saline, and 1 ml of preservative free lidocaine 1% solution was injected and a washout epidurogram was seen. Needle was withdrawn intact, skin was cleansed, and bandages were applied. COMPLICATIONS: None DISPOSITION / PLANS: The patient was placed in a supine position and transferred to the recovery area in a stable condition for observation. There was no evidence of lower extremity motor or sensory deficit after the procedure. Patient was discharged from the recovery room after meeting discharge criteria. Home discharge instructions were given to the patient by the staff. The patient will schedule a follow up in the clinic in 2-4 weeks.
[2020-04-24 10:06] VITALS: RESP 16
[2020-04-24 10:13] VITALS: BP 109/54; PULSE 65
--- NOTE | 2020-04-24 11:07 | FL ---
Fluoroscopy History: EDWINAI MARCIE. 5 SECONDS FLUORO TIME.
== END 2020-04-24 10:29 | disposition home or self-care (01) ==
LOC: ORPAIN 08:41
PROVIDERS: ATTEND Anesthesiology
DX: M51.16 Intervertebral disc disorders with radiculopathy, lumbar region (principal); M47.26 Other spondylosis with radiculopathy, lumbar region; Z88.2 Allergy status to sulfonamides; Z88.1 Allergy status to other antibiotic agents
CPT/HCPCS: 62323; J1030; Q9966

== ENCOUNTER → 2020-05-28 | Outpatient (CLI) | payer MEDICARE ==
[2020-05-28 11:04] VITALS: BP 147/82; PULSE 55; RESP 18; TEMP 97.9
--- NOTE | 2020-05-28 13:09 | P.PAINPG ---
Subjective Progress Note Date: 05/28/20 This is a follow up visit for this 64 was also male with a chronic history of significant low back pain, patient reported that the back pain started in 2010, she denies any initiating event but she reported pain at that time used to be improved after physical therapy and chiropractics. We initially saw her in 10/2019 where she noted pain in the low back radiating posterior lateral aspect of her lower extremity. We felt her pain may be mediated from L5-S1 disc herniation and since then she has had L5-S1 ILESI in 11/2019 (3 weeks relief), 03/2020 (no relief), and 04/2020 (still has relief of her leg pain). She is here for followup today. her pain is primarily in her low back on the right side described as dull aching occasionally sharp. Alleviating factors include flexion and reclining. Exacerbating factors include walking and physical activity. It is worse at night after she has walked and done activity all day. Laying on her right side is also very painful. Currently her pain as a 7 out of 10. He does think that her leg pain has improved significantly with epidural steroid injections. He wonders if the one injection in March that she had divided no relief because we used analog and so Depo-Medrol and would prefer to have Depo-Medrol and any future steroid injections. she denies any fever or night sweats she denies any change in the bowel movement or urination, no motor or sensory deficit, the pain is not improved with the current pain medication Dalton and Motrin, and is not improved with physical therapy Medications and Allergies Allergies Allergy/AdvReac Type Severity Reaction Status Date / Time Sulfa (Sulfonamide Allergy lethargy,na Verified 11/15/19 15:08 Antibiotics) usea Physical Exam REVIEW OF ORGAN SYSTEMS: CONSTITUTIONAL: No fevers or chills. No recent weight loss. EYES: denies troubles with vision. HEENT: No difficulties with hearing. No nosebleeds. No difficulty swallowing. RESPIRATORY: Denies any troubles with breathing or dyspnea on exertion. CARDIOVASCULAR: Denies any chest pain, palpitations, or recent heart attacks. GASTROINTESTINAL: Denies fatty food intolerance. Has change in bowel habits and gas bloat. GENITOURINARY: Denies any blood in urine. Has increased urinary frequency. NEUROLOGICAL: no numbness , no tingling. No seizure disorders or headaches. MUSCULOSKELETAL: Has back pain. SKIN:no skin cancer. No rash. PSYCHIATRIC: Denies current depression or suicidal thoughts. ENDOCRINE: Denies current thyroid disorders. Denies any blood sugar glucose intolerance. HEME/LYMPHATIC: Denies any lumps and bumps around the neck. History of deep venous thrombosis. ALLERGY/IMMUNOLOGY: No immunoglobulin therapy. No immune deficiencies. BREAST: Denies current breast lumps, pain or nipple discharge. Physical Examinations : Constitutiona : Cooperative , not in acute distress . HEENT : nech : supple , no Lymphadenopathy , normal thyroid size . : eyes no ptosis , no icterus, no photophobia . neurologic : Cranial nerve II to XII intact , no focal neurological deffecit . psychatric : alert , oriented X 3 , appropriate affect , intact judgment and insight . Lymphatic : no Lymphadenopathy . musculoskeltal : . Lumber spine moter stegnth lower extremities ,thigh and legs 5/5 Right side , 5/5 Left side deep tendon reflexes : normal Knee Jerk , normal ankle Jerk lumber facet Loading Test= positive Right , positive Left Range of motion of the lumbar spine Flexion 60 degrees, extension 30 degrees strait leg raising test = negative bilaterally Fabere test= positive bilaterally Tenderness over the right sacroiliac joint and right low back Results Comments: MRI of the lumbar spine reviewed= multilevel lumbar bulging disc disease, and L5-S1 lumbar herniated disc disease and multilevel lumbar facet arthropathy Assessment and Plan Plan: Assessment and plan= lumbar herniated disc disease. Lumbar degenerative disc disease. Lumbar spondylosis with lumbar facet arthropathy without myelopathy. patient has had benefit with her epidural steroid injections primarily of her leg pain. However she still having dull aching low back pain that is likely facet mediated. We'll proceed with a right medial branch block at levels L4-L5 and L5-S1 as she likely has some facet mediated pain in addition to the pain mediated from her disc bulges PQRS Measure Charge Sheet Measure #226: Tobacco Use: Screen & Cessation Intervention: Pt not a tobacco user Measure #47: Advance Care Plan: Advance care planning discussed & documented, pt chose/unable to give Measure #412: Opioid Treatment Agreement: No documentation of signed opioid treatment agreement Measure #408: Opioid Therapy Follow-up Evaluation: Patient had NO f/u eval minimum every 3 months during opioid therapy Measure #317: Preventitive Care & Scrn High Bld Press & F/U: Normal blood pressure, f/u not required Measure #128: Body Mass Index (BMI) Screening & Follow-up: BMI documented within normal parameters Measure #131: Pain Assessment & Follow-up: Pain positive & plan documented Measure #431: Unhealthy Alcohol Use Preventative Care & Scrn: Patient not identified as an unhealthy alcohol user PQRS Narrative: Smoking Status Former smoker Pain Intensity [Right Lower 8 Back] Scale Used Numeric (1 - 10) Hx Alcohol Use (MH) No Home Medications: Ambulatory Orders Levothyroxine Sodium [Synthroid] 50 mcg PO DAILY 07/10/14 clonazePAM [KlonoPIN] 0.5 mg PO HS 07/10/14 HYDROcodone/APAP 7.5-325MG [Dalton 7.5-325] 1 tab PO Q6HR PRN 11/15/19 Ibuprofen [Motrin] 600 mg PO Q8HR PRN 11/15/19 rOPINIRole HCL [Requip] 1 mg PO HS 11/15/19 Mirabegron [Myrbetriq] 25 mg PO DAILY 05/28/20 Controlled Substance Measures - Controlled Substance Measures Is patient prescribed a controlled substance at discharge?: No
== END | disposition home or self-care (01) ==
LOC: PNWHC3 10:43
PROVIDERS: ATTEND Anesthesiology
DX: M51.36 Other intervertebral disc degeneration, lumbar region (principal); M47.816 Spondylosis without myelopathy or radiculopathy, lumbar region; M51.26 Other intervertebral disc displacement, lumbar region; M46.96 Unspecified inflammatory spondylopathy, lumbar region; Z87.891 Personal history of nicotine dependence; Z79.891 Long term (current) use of opiate analgesic; Z79.899 Other long term (current) drug therapy; Z79.890 Hormone replacement therapy
CPT/HCPCS: 99211

== ENCOUNTER → 2020-06-19 | Day surgery (SDC) | payer MEDICARE ==
[2020-06-13 15:40] VITALS: BMI 30.1
[~2020-06-19] MED LIST changes: +ROPIVACAINE 5MG/ML 20ML VIAL ONE; +methylPREDNISolone ACETATE 40 MG/ML 1 ML VIAL ONE
[2020-06-19 09:01] VITALS: TEMP 98.3
--- NOTE | 2020-06-19 09:35 | P.PCN ---
Date of Procedure: 06/19/20 Procedure(s) Performed: PREOPERATIVE DIAGNOSIS : 1- Lumbar spondylosis with Facet Arthropathy without myelopathy . 2- Lumber degenerative disc disease POSTOPERATIVE DIAGNOSIS: 1- Lumbar spondylosis with Facet Arthropathy without myelopathy . 2- Lumber degenerative disc disease PROCEDURE: Diagnostic Right L3 , L4 , and L5 medial branch block under fluoroscopy guidance(fluoroscopy images available in the radiology Department ) ( To target the facet joint between Right L4-5 , and L5-S1 ) ANESTHESIA: Local anesthetic only, no IV sedation EBL: Minimal COMPLICATION: None. IV FLUIDS: 100 mL of normal saline. PROCEDURE INDICATION: Chronic low back pain secondary to Facet arthropathy unresponsive to conservative treatment. PROCEDURE DESCRIPTION: the patient was seen and identified in the preop holding area , risks and benefits and possible complications of the procedure and alternative were discussed with the patient, and the patient agreed to proceed with the procedure and signed the consent IV was started and vital signs monitored during the procedure and fluoroscopy was used to maximize the benefit and accuracy of the needle placement,,, patient was taken to the procedure room and placed in prone position vital signs monitored in the back prepped with chlorhexidine X3 then under strict sterile technique using a right oblique fluoroscopy ,the junction of the transverse process and the superior articulating process of the right L3 , L4 , and L5 vertebra which corresponding to the fluoroscopy image of the eye of the Hector dog on the block side for the medial branches and subsequently , after local infiltration of skin and subcu tissuies with Ropivacaine 0.5 % , one mL at each level ,then 22-gauge Quincke-type needles , 3 needle was used , each one of them placed at the junction of the base of the transverse process and the superior articular process at the appropriate level, and the needle was advanced until the periosteum contacted, needle placement confirmed with AP oblique and lateral view and after appropriate needle placement confirmed, and after negative aspiration for heme and CSF and there was no paresthesia 1-1/2 mL of Ropivacaine 0.5% mixed with 20 mg Depo-Medrol , then half mL injected at each level after negative aspiration the needle subsequently removed . At the end of the procedure and the needles removed and a bandage applied after the skin was cleaned the cleaning solution patient taken to recovery room in stable condition and monitors in the recovery room for 20-30 minutes and discharged home in stable condition after discharge criteria met and patient will follow up with the pain clinic in 2-4 weeks note= patient complaining of pain on the right side only, she had 0 pain on the left side , for this reason we did the diagnostic block on the right side only.
[2020-06-19 09:36] VITALS: BP 103/66; PULSE 58; RESP 17
--- NOTE | 2020-06-19 10:02 | FL ---
EXAMINATION TYPE: FL guided pain mgmt statistic DATE OF EXAM: 06/19/2020 CLINICAL HISTORY: Low back pain. TECHNIQUE: Fluoroscopy. COMPARISON: None. FINDINGS: Fluoroscopic guidance was provided during pain relief procedure performed by Dr. Garcia . A total of 10 seconds of fluoroscopic time was utilized during the procedure and single spot image s are acquired. Single image acquired shows needle localization off midline at L4 and L5 levels. IMPRESSION: As Above.
== END ==
LOC: ORPAIN 08:19
PROVIDERS: ATTEND Specialist
DX: G89.29 Other chronic pain (principal); M47.816 Spondylosis without myelopathy or radiculopathy, lumbar region; M51.36 Other intervertebral disc degeneration, lumbar region; Z88.1 Allergy status to other antibiotic agents; Z88.2 Allergy status to sulfonamides
CPT/HCPCS: 64493; 64494; J1030; J2795

== ENCOUNTER 2020-07-31 08:23 | Day surgery (SDC) | payer MEDICARE ==
[2020-07-30 09:12] VITALS: BMI 30.1
[~2020-07-31 08:23] MED LIST changes: -ROPIVACAINE 5MG/ML 20ML VIAL ONE; -methylPREDNISolone ACETATE 40 MG/ML 1 ML VIAL ONE
[2020-07-31 08:53] VITALS: TEMP 98
[2020-07-31] MEDS ORDERED: ROPIVACAINE 5MG/ML 20ML VIAL ONE (09:22)
[2020-07-31] MEDS ORDERED: methylPREDNISolone ACETATE 40 MG/ML 1 ML VIAL ONE (09:22)
--- NOTE | 2020-07-31 09:36 | P.PCN ---
Date of Procedure: 07/31/20 Procedure(s) Performed: PREOPERATIVE DIAGNOSIS : 1- Lumbar spondylosis with Facet Arthropathy without myelopathy . 2- Lumber degenerative disc disease POSTOPERATIVE DIAGNOSIS: 1- Lumbar spondylosis with Facet Arthropathy without myelopathy . 2- Lumber degenerative disc disease PROCEDURE: Diagnostic Right L3 , L4 , and L5 medial branch block under fluoroscopy guidance(fluoroscopy images available in the radiology Department ) ( To target the facet joint between Right L4-5 , and L5-S1 ) ANESTHESIA: Local anesthetic only, no IV sedation EBL: Minimal COMPLICATION: None. IV FLUIDS: 100 mL of normal saline. PROCEDURE INDICATION: Chronic low back pain secondary to Facet arthropathy unresponsive to conservative treatment. PROCEDURE DESCRIPTION: the patient was seen and identified in the preop holding area , risks and benefits and possible complications of the procedure and alternative were discussed with the patient, and the patient agreed to proceed with the procedure and signed the consent IV was started and vital signs monitored during the procedure and fluoroscopy was used to maximize the benefit and accuracy of the needle placement,,, patient was taken to the procedure room and placed in prone position vital signs monitored in the back prepped with chlorhexidine X3 then under strict sterile technique using a right oblique fluoroscopy ,the junction of the transverse process and the superior articulating process of the right L3 , L4 , and L5 vertebra which corresponding to the fluoroscopy image of the eye of the Hector dog on the block side for the medial branches and subsequently , after local infiltration of skin and subcu tissuies with Ropivacaine 0.5 % , one mL at each level ,then 22-gauge Quincke-type needles , 3 needle was used , each one of them placed at the junction of the base of the transverse process and the superior articular process at the appropriate level, and the needle was advanced until the periosteum contacted, needle placement confirmed with AP oblique and lateral view and after appropriate needle placement confirmed, and after negative aspiration for heme and CSF and there was no paresthesia 1-1/2 mL of Ropivacaine 0.5% mixed with 20 mg Depo-Medrol , then half mL injected at each level after negative aspiration the needle subsequently removed . At the end of the procedure and the needles removed and a bandage applied after the skin was cleaned the cleaning solution patient taken to recovery room in stable condition and monitors in the recovery room for 20-30 minutes and discharged home in stable condition after discharge criteria met and patient will follow up with the pain clinic in 2-4 weeks note= patient complaining of pain on the right side only, she had 0 pain on the left side , for this reason we did the diagnostic block on the right side only.
[2020-07-31 09:55] VITALS: PULSE 58; RESP 16
[2020-07-31 09:57] VITALS: BP 128/54
--- NOTE | 2020-07-31 09:58 | FL ---
EXAMINATION TYPE: FL guided pain mgmt statistic DATE OF EXAM: 07/31/2020 CLINICAL HISTORY: Low back pain. TECHNIQUE: Fluoroscopy. COMPARISON: None. FINDINGS: Fluoroscopic guidance was provided during pain relief procedure performed by Dr. Garcia . A total of 9 seconds of fluoroscopic time was utilized during the procedure and two spot images ar e acquired. Images acquired shows needle localization at several levels in lower lumbar spine. IMPRESSION: As Above.
== END 2020-07-31 09:57 ==
LOC: ORPAIN 08:23
PROVIDERS: ATTEND Specialist
DX: G89.29 Other chronic pain (principal); M47.816 Spondylosis without myelopathy or radiculopathy, lumbar region; M51.36 Other intervertebral disc degeneration, lumbar region; Z88.2 Allergy status to sulfonamides; Z88.1 Allergy status to other antibiotic agents
CPT/HCPCS: 64493; 64494; J1030; J2795

== ENCOUNTER → 2020-07-31 | Outpatient (CLI) | payer MEDICARE ==
[2020-07-31 10:49] LABS: Basophils % (A) 1 %; Eosinophils # (A) 0.1 k/uL (0-0.7); Eosinophils % (A) 2 %; HCT 39.9 % (34.0-46.0); HGB 12.9 gm/dL (11.4-16.0); Lymphocytes # (A) 2.1 k/uL (1.0-4.8); Lymphocytes % (A) 32 %; MCH 33.2 pg (25.0-35.0); MCHC 32.3 g/dL (31.0-37.0); MCV 102.6 fL (80.0-100.0); Macrocytosis Slight; Mean Platelet Volume 6.7; Monocytes # (A) 0.4 k/uL (0-1.0); Monocytes % (A) 7 %; Neutrophils # (A) 3.9 k/uL (1.3-7.7); Neutrophils % (A) 58 %; Platelet Count 260 k/uL (150-450); RBC 3.89 m/uL (3.80-5.40); RDW 12.6 % (11.5-15.5); WBC 6.7 k/uL (3.8-10.6)
[2020-07-31 19:31] LABS: African American GFR (CKD) 76.7 (60.0-200.0); Albumin 4.1 g/dL (3.80-4.90); Albumin/Globulin Ratio 1.78 (1.60-3.17); Anion Gap 9.3 mmol/L (4.00-12.00); BUN/Creat Ratio 25.56 Ratio (12.00-20.00); Calcium 9.6 mg/dL (8.7-10.3); Carbon Dioxide 25.7 mmol/L (21.6-31.8); Chol/HDL Ratio 3.45; Globulin 2.3 g/dL (1.6-3.3); LDL Cholesterol,Calculated 130.8 mg/dL (0.0-131.0); Non-African American GFR(CKD) 66.2 (60.0-200.0); Potassium 4.3 mmol/L (3.5-5.5); Total Bilirubin 0.4 mg/dL (0.3-1.2); Total Protein 6.4 g/dL (6.2-8.2); VLDL Calculation 16.2 mg/dL (5.00-40.00)
== END | disposition home or self-care (01) ==
LOC: LABWHC1 10:02
PROVIDERS: ATTEND Family Medicine
DX: E78.5 Hyperlipidemia, unspecified (principal); E03.9 Hypothyroidism, unspecified; I10 Essential (primary) hypertension
CPT/HCPCS: 36415; 80053; 80061; 84443; 85025

== ENCOUNTER → 2020-08-27 | Outpatient (CLI) | payer MEDICARE ==
[2020-08-27 09:08] VITALS: BP 123/82; PULSE 69; RESP 16; TEMP 97.7
--- NOTE | 2020-08-27 09:29 | P.PN ---
Subjective Progress Note Date: 08/27/20 This is a 65-year-old lady with history of lower back and right leg pain. The patient has lumbar spondylosis and right lumbar radiculopathy. She received lumbar medial branch block twice and both injections improved her lower back pain but not her right leg pain. Improvement was felt right after the injection of the medial branches. The patient is going to see Dr. Taveras in a few weeks and to repeat her lumbar spine MRI. Patient denies new-onset weakness, bowel/bladder incontinence, or any other signs or symptoms of cauda equina syndrome. There are no signs of acute intoxication, and no indications of medication diversion or overuse. In addition to above, 13-point review of systems is also negative for chest pain, shortness of breath, changes in vision, changes in hearing, new onset weakness, abdominal pain, diarrhea, extreme fatigue, malaise, fever, skin changes, homicidal or suicidal ideation, or bowel or bladder incontinence. Vital Signs: Reviewed in EMR Gen: AAOx3, NAD HEENT: PERRLA,hearing grossly normal Pulm: resp unlabored Neck: supple, trachea midline Neuro exam of the lower extremities: Normal muscle strength bilaterally Straight leg raising test: Pedro's test: Range of motion of the lumbar spine: Facet loading test: Tenderness in the paravertebral musculature: Neuro: CN II-XII grossly intact, Imaging: Reviewed in EMR/chart Assessment: Lumbar spondylosis without myelopathy Right lumbar radiculopathy Plan: 1. Explanation: Opioid and psychological risk scores were reviewed. Diagnoses, prognoses, and multiple treatment options including but not limited to physical therapy, interventional therapies, adjuvant medical therapies, narcotic medication therapies, and surgery were discussed with the patient and all questions were answered to the patient's satisfaction. 2. Opioid agreement: Signed with the patient and the patient is warned not to use opioids while driving or before driving and not to combine opioids with benzodiazepines or alcohol. 3. Counseling: The patient was counseled extensively on SMOKING CESSATION, BODY MASS INDEX, EXERCISE. Specifically, the patient was instructed regarding the importance of smoking cessation, obesity, and exercise in the context of both chronic pain and overall health. 4. Procedures: The patient was scheduled for lumbar medial branch RFA after she sees Dr. Taveras the procedure to be done on the right side for the L3, L4, and L5 medial branches the target the L4 5 and L5-S1 facet joints 5. Consultations: None 6. Investigations: None 7. Medications: none 8. Disposition: Percent to have the above-mentioned procedure done after she sees Dr. Taveras 9. Maps were reviewed and were appropriate. Objective - Vital Signs Vital signs: Vital Signs Temp 97.7 F 08/27/20 09:02 Pulse 69 08/27/20 09:02 Resp 16 08/27/20 09:02 BP 123/82 08/27/20 09:02 Pulse Ox 98 08/27/20 09:02
== END | disposition home or self-care (01) ==
LOC: PNWHC3 08:54
PROVIDERS: ATTEND Anesthesiology
DX: M47.26 Other spondylosis with radiculopathy, lumbar region (principal)
CPT/HCPCS: 99211

== ENCOUNTER → 2020-09-01 | Outpatient (CLI) | payer MEDICARE ==
--- NOTE | 2020-09-02 09:45 | MM ---
Reason for exam: screening (asymptomatic). Last mammogram was performed 1 year ago. History: Patient is postmenopausal. Family history of breast cancer in paternal cousin at age 40. Reductions of both breasts, December 2016. Took hormonal contraceptives for 5 years beginning at age 17. Took estrogen for 4 years beginning at age 43. Physical Findings: A clinical breast exam by your physician is recommended on an annual basis and results should be correlated with mammographic findings. MG 3D Screening Mammo W/Cad Bilateral CC and MLO view(s) were taken. Prior study comparison: August 27, 2019, bilateral MG 3d screening mammo w/cad. August 18, 2018, bilateral MG 3d screening mammo w/cad. The breast tissue is heterogeneously dense. This may lower the sensitivity of mammography. There is no discrete abnormality. No significant changes when compared with prior studies. ASSESSMENT: Benign, BI-RAD 2 RECOMMENDATION: Routine screening mammogram of both breasts in 1 year.
== END | disposition home or self-care (01) ==
LOC: RADMAMWWP 09:53
PROVIDERS: ATTEND Family Medicine
DX: Z12.31 Encounter for screening mammogram for malignant neoplasm of breast (principal)
CPT/HCPCS: 77063; 77067

== ENCOUNTER → 2020-09-11 | Outpatient (CLI) | payer MEDICARE ==
--- NOTE | 2020-09-11 15:10 | MR ---
EXAMINATION TYPE: MR lumbar spine wo con DATE OF EXAM: 09/11/2020 COMPARISON: Prior lumbar MRI 07/19/2019 HISTORY: Low back pain into rt leg TECHNIQUE: Multiplanar, multisequence images of the lumbar spine were acquired. L1-L2: Normal disc appearance without desiccation. No herniation, protrusion or disc bulging. No ca nal stenosis is present. Foramina are patent bilaterally. L2-L3: Normal disc appearance without desiccation. No herniation, protrusion or disc bulging. No ca nal stenosis is present. Foramina are patent bilaterally. L3-L4: Eccentric posterior disc bulge causes anterolateral mass effect on the thecal sac towards the left. Circumferential extension of endplate disc complex encroaches somewhat on the right neural fora men within left. There is facet arthropathy with virtually ligamentum flavum causing posterior latera l mass effect on the thecal sac. L4-L5: Listhesis contributes with hypertrophic change of the facets, ligamentum flavum causes trefoil appearance of the thecal sac. No significant foraminal encroachment. Broad-based posterior disc bulg e causes only slight anterior mass effect on the thecal sac. L5-S1: Posterior broad-based disc bulge causes minimal anterior mass effect on the thecal sac. There is some facet arthropathy change. No significant foraminal encroachment or spinal stenosis. Lateral d isc herniation described in prior report shows a similar appearance and may be contributed by the spi nal curvature. Lumbar segments are intact. No paraspinal masses are identified. Conus medullaris has a normal appe arance. Lumbar vertebral bodies show preserved height, alignment without joint minimal anterolisthesi s grade 1 L4-5. There is multilevel spondylosis with endplate discogenic marrow signal change. Loss o f disc height signal is present at intervertebral levels with relative sparing of L1-L2. There is a s gilberto curvature as noted on prior exam. IMPRESSION: Degenerative disc disease and facet arthropathy is essentially stable.
== END | disposition home or self-care (01) ==
LOC: RADMRIMAIN 12:32
PROVIDERS: ATTEND Family Medicine
DX: M51.36 Other intervertebral disc degeneration, lumbar region (principal); M47.816 Spondylosis without myelopathy or radiculopathy, lumbar region
CPT/HCPCS: 72148

== ENCOUNTER → 2020-09-24 | Outpatient (CLI) | payer MEDICARE ==
--- NOTE | 2020-09-24 12:26 | XR ---
EXAMINATION TYPE: XR lumbosacral spine 5 views (including flexion and extension) DATE OF EXAM: 09/24/2020 Comparison: 06/06/2019 Clinical History: 65-year-old female M43.16 spondylolisthesis Findings: Cholecystectomy clips. Moderate stool burden. 5 lumbar type vertebral bodies. Hypertrophic facet arth ropathy throughout the lumbar spine. Moderate disc space narrowing L3-L4 and L5-S1. A fixed, trace gr iron 1 anterolisthesis L4-L5. Slightly accentuated upper lumbar lordosis. Vertebral body heights are p reserved. No new spondylolisthesis on flexion or extension. Impression: 1. Hypertrophic facet arthropathy throughout with a fixed grade 1 anterolisthesis at L4-L5. No dynami c subluxations seen. 2. Moderate degenerative disc disease L3-L4 and L5-S1. Mild at other levels. 3. No vertebral compression collapse.
== END | disposition home or self-care (01) ==
LOC: RADXRMAIN 10:37
DX: M51.36 Other intervertebral disc degeneration, lumbar region (principal); M47.816 Spondylosis without myelopathy or radiculopathy, lumbar region; M51.37 Other intervertebral disc degeneration, lumbosacral region; M43.16 Spondylolisthesis, lumbar region
CPT/HCPCS: 72110

== ENCOUNTER → 2021-02-04 | Outpatient (CLI) | payer MEDICARE ==
--- NOTE | 2021-02-04 14:53 | MR ---
EXAMINATION TYPE: MR knee RT wo con DATE OF EXAM: 02/04/2021 COMPARISON: Right knee x-ray 8 days ago. HISTORY: Rt knee pain and swelling since November per patient. TECHNIQUE: Multiplanar, multisequence imaging of the right knee is performed without IV contrast. FINDINGS: MEDIAL MENISCUS: Posterior horn has oblique increased signal extending to inferior articular surface. LATERAL MENISCUS: Anterior and posterior horns are intact without tear. CRUCIATE LIGAMENTS: The anterior and posterior cruciate ligaments are intact and unremarkable. COLLATERAL LIGAMENTS: The medial collateral ligament and lateral collateral ligament complex are inta ct and unremarkable. EXTENSOR MECHANISM: Visualized quadriceps and patellar tendons are intact. EFFUSION: Small to moderate size suprapatellar joint effusion. POPLITEAL CYST: No popliteal/giraldo cyst. TRICOMPARTMENT SPACES: Mild to moderate tricompartment joint space loss and mild spurring. CARTILAGE: Some Cartilaginous loss medial tibiofemoral compartment. No full-thickness cartilaginous d efects. BONE MARROW SIGNAL: No focal abnormal marrow signal is appreciated. OTHER: No additional significant abnormality is appreciated. IMPRESSION: 1. Oblique full-thickness tear posterior horn medial meniscus. 2. Mild to moderate tricompartment degenerative changes as detailed above. 3. Small to moderate-sized joint effusion.
== END | disposition home or self-care (01) ==
LOC: RADMRIMAIN 13:16
PROVIDERS: ATTEND Orthopaedic Surgery
DX: M23.321 Other meniscus derangements, posterior horn of medial meniscus, right knee (principal); M17.11 Unilateral primary osteoarthritis, right knee

== ENCOUNTER → 2021-03-04 | Outpatient (CLI) | payer MEDICARE ==
[2021-03-04 23:16] LABS: Basophils # (A) 0.03 X 10*3/uL (0.00-0.10); Basophils % (A) 0.5 %; Eosinophils # (A) 0.07 X 10*3/uL (0.04-0.35); Eosinophils % (A) 1.3 %; HCT 42.5 % (37.2-46.3); HGB 13.8 g/dL (12.0-15.0); Lymphocytes # (A) 2.39 X 10*3/uL (0.90-5.00); Lymphocytes % (A) 42.8 %; MCH 31.6 pg (27.0-32.0); MCHC 32.5 g/dL (32.0-37.0); MCV 97.3 fL (80.0-97.0); Mean Platelet Volume 9.6 fL (9.5-12.2); Monocytes # (A) 0.46 X 10*3/uL (0.20-1.00); Monocytes % (A) 8.2 %; Neutrophils # (A) 2.62 X 10*3/uL (1.80-7.70); Platelet Count 255 X 10*3/uL (140-440); RBC 4.37 X 10*6/uL (4.10-5.20); WBC 5.58 X 10*3/uL (4.50-10.00)
[2021-03-05 03:59] LABS: Anion Gap 8.6 mmol/L (4.00-12.00); Carbon Dioxide 27.4 mmol/L (21.6-31.8); Potassium 4.3 mmol/L (3.5-5.5)
== END | disposition home or self-care (01) ==
LOC: LABWHC1 10:03
PROVIDERS: ATTEND Orthopaedic Surgery
DX: Z01.812 Encounter for preprocedural laboratory examination (principal); M23.91 Unspecified internal derangement of right knee
CPT/HCPCS: 36415; 80051; 85025

== ENCOUNTER 2021-03-12 13:22 | Day surgery (SDC) | payer MEDICARE ==
[2021-03-09 14:29] VITALS: BMI 30.1
--- NOTE | 2021-03-11 18:06 | HP ---
HISTORY AND PHYSICAL DATE OF SURGERY: 03/12/2021 Charito Coyle is a 65-year-old patient seen with progressive right knee pain. We discussed options for treatment. She elected to proceed with right knee arthroscopy. Consent was obtained. PAST MEDICAL HISTORY: Hypothyroidism, hypertension. PAST SURGICAL HISTORY: Appendectomy, cholecystectomy, knee arthroscopy. DAILY MEDICATIONS: Levothyroxine, hydrocodone. ALLERGIES: SULFA. SOCIAL HISTORY: She denies current tobacco use. PHYSICAL EVALUATION OF THE RIGHT KNEE: Her range of motion is +1/2 to 125. Mild effusion. Tenderness, medial joint line. Positive medial Gemma's. Crepitus along the medial patellofemoral compartments with range of motion. Pain with patellofemoral compression. Ligaments stable. Hip rotation without pain. Distal neurovascular exam intact. RADIOGRAPHS: Right knee radiographs reveal some osteoarthritic changes. MRI of the right knee revealed medial meniscal tear, osteoarthritis and intraarticular effusion. IMPRESSION: 1. Internal derangement of right knee with meniscal tear. 2. Hypothyroidism. 3. Hypertension. PLAN: Right knee arthroscopy with partial meniscectomy and debridement. MMODL / IJN: [id number] /
[~2021-03-12 13:22] MED LIST changes: +DEXAMETHASONE SOD PHOSPHATE 4 MG/ML 1 ML VIAL IV ONE; +LIDOCAINE 1% (10MG/ML) FOR IV START INTRADERMA PRN; +MIDAZOLAM 2 MG/2 ML VIAL IV PRN; +ONDANSETRON 4 MG/2 ML VIAL IVP ONE
[2021-03-12] MEDS ORDERED: PROPOFOL 10 MG/ML 20 ML VIAL IV ONE (15:38)
[2021-03-12] MEDS ORDERED: MIDAZOLAM 2 MG/2 ML VIAL ONE (15:38)
[2021-03-12] MEDS ORDERED: LIDOCAINE 1% INJ 10MG/ML (20 ML MDV) ONE (15:38)
[2021-03-12] MEDS ORDERED: fentaNYL (PF) 50 MCG/ML 2 ML AMP ONE (15:38)
[2021-03-12] MEDS ORDERED: KETOROLAC 15 MG/ML 1 ML VIAL ONE (15:38)
[2021-03-12] MEDS ORDERED: BUPIVACAINE (PF) 0.25% 30 ML VIAL SQ ONE (16:04)
--- NOTE | 2021-03-12 16:35 | P.OP ---
Date of Procedure: 03/12/21 Preoperative Diagnosis: Internal derangement right knee Postoperative Diagnosis: 1. Tear medial meniscus right knee 2. Grade 2 chondromalacia medial femoral condyle right knee 3. Reactive synovitis medial, lateral and suprapatellar compartments right knee Procedure(s) Performed: 1. Arthroscopic partial medial meniscectomy right knee 2. Arthroscopic chondroplasty medial femoral condyle right knee 3. Arthroscopic partial synovectomy medial, lateral and suprapatellar compartments right knee Anesthesia: ALYSAA, local Surgeon: Hakan Galeana Estimated Blood Loss (ml): 7 Pathology: none sent Condition: stable Disposition: PACU Indications for Procedure: 65-year-old patient seen with progressive right knee pain. After treatment options were discussed, she elected to proceed with arthroscopy. Operative Findings: See description of procedure Description of Procedure: Patient was taken to the operative suite. Patient underwent a general anesthetic by the department of anesthesia. Patient was given preoperative antibiotics. The right lower extremity was placed in a well-padded arthroscopic leg sandoval. The right leg was prepped and draped in the normal sterile orthopedic fashion. A lateral parapatellar and suprapatellar incision was made. Trochars were inserted. Arthroscopy was initiated. Suprapatellar pouch revealed diffuse thick reactive synovitis. The patellofemoral joint appeared to articulate congruently. There was grade 1 chondromalacia with no osteochondral tears present. The scope was guided into the medial gutter. No loose bodies or plica were identified. The scope was then guided into the medial compartment. A medial parapatellar incision was made. Trocar inserted followed by probe. There was a complex tear involving the posterior horn of the medial meniscus. There were grade 2 chondromalacia changes of the medial femoral condyle with some osteochondral flap tears present. There was thick reactive synovitis anteriorly. I performed a partial medial meniscectomy getting down to stable meniscal tissue. I performed a chondroplasty of the medial femoral condyle getting down to stable osteochondral tissue. I performed a partial synovectomy decompressing the thick reactive synovitis. The residual meniscus was probed and found to be stable. There was good decompression of the synovitis. The residual osteochondral surface was stable. Scope and probe were then guided into the intercondylar notch. Cruciates were identified, probed and found to be stable. The scope and probe were then guided into lateral compartment. Lateral meniscus was probed and found to be stable. There were some grade 1 chondromalacia changes of the lateral compartment. There was thick reactive synovitis anteriorly. I introduced a motorized shaver and I performed a partial synovectomy decompressing the thick reactive synovitis. The shaver was removed and we noted good decompression of the synovitis. The scope was in guided back into the suprapatellar compartment. I introduced a motorized shaver into the super patellar compartment. I debrided some piecemeal fragments of meniscus I encountered. I performed a partial synovectomy decompressing the thick reactive synovitis. The shaver was removed. There was good decompression of the synovitis. I took one more look on the entire knee, no residual debris. Instruments were now removed from the joint. The joint was infiltrated with .25% Marcaine. Steri-Strips were applied to the portal sites. Sterile dressings were applied. The patient was placed into a MARISELA hose. No tourniquet was utilized. The patient was awakened, transferred to a bed and taken to recovery stable satisfactory condition.
[2021-03-12] MEDS: HYDROmorphone 0.5 MG/0.5 ML SYRINGE IVP PRN ×2 (16:40→16:50)
[2021-03-12 16:51] VITALS: TEMP 97.1
[2021-03-12 17:48] VITALS: RESP 20
[2021-03-12 18:32] VITALS: BP 145/88; PULSE 69
== END 2021-03-12 18:19 | disposition home or self-care (01) ==
LOC: OR 13:22
PROVIDERS: ATTEND Orthopaedic Surgery
DX: M23.303 Other meniscus derangements, unspecified medial meniscus, right knee (principal); E03.9 Hypothyroidism, unspecified; I10 Essential (primary) hypertension; Z79.899 Other long term (current) drug therapy; Z88.3 Allergy status to other anti-infective agents; Z88.2 Allergy status to sulfonamides
CPT/HCPCS: 29881; 29876; J2250; J1100; J0690; J2405; J2001; J3010; J1885; J2704; J1170

== ENCOUNTER → 2021-09-07 | Outpatient (CLI) | payer MEDICARE ==
--- NOTE | 2021-09-07 18:56 | BD ---
EXAMINATION TYPE: Axial Bone Density DATE OF EXAM: 09/07/2021 COMPARISON: 08.27.2019 CLINICAL HISTORY: 66 YR OLD FEMALE.....ICD-10 CODE: M81.0 OSTEOPOROSIS Height: 62.8 Weight: 195 FRAX RISK QUESTIONS: Secondary Osteoporosis: YES 3. Menopause before 45: YRS RISK FACTORS HISTORY OF: Surgery to Spine SPACERS IN L4 AND L5 October, Postmenopausal woman: YES, AT AGE 43 YRS, HYST. TOTAL Take estrogen and/or progesterone medications: IN THE PAST FOR ABOUT 2-3 YRS Hyperparathyroidism: NO Adrenal Insufficiency: NO MEDICATIONS: Thyroid Medications: YES, SYNTHROID FOR ABOUT 8 YRS Additional Medications: REFLUX PRN, Additional History: THYROID, REFLUX, AND BACK PAIN EXAM MEASUREMENTS: Bone mineral densitometry was performed using the [employer]. LUMBAR SURG, 2020.....SPINE NOT SCANNED Bone mineral density about the R hip (g/cm2): 0.807 Bone mineral density about the L hip (g/cm2): 0.808 T Score values are as follows: -----R Neck: -1.9 -----L Neck: -1.9 -----R Total: -1.6 -----L Total: -1.6 Bone mineral density has: Decreased -6.5% since study of: 08.27.2019 FRAX%s: THERE IS A 10.4% CHANCE FOR A MAJOR OSTEOPOROTIC FX AND A 1.6% FOR HIP.....PROBABILITY FO R FX IN 10 YRS TIME Bone mineral density about the L Wrist (g/cm2): 0.594 T Score values are as follows: -----Dist. R+U: -0.1 -----Prox. R+U: -0.1 -----Radius total: -0.6 Bone mineral density FIRST BONE DENSITY SCAN ON FOREARM IMPRESSION: Osteopenia (T Score between -2.5 and -1). There is slightly increased risk of fracture and the patient may be considered for treatment. Re-Screen 2-5 years. NOTE: T-SCORE=SD OF THE YOUNG ADULT MEAN.
--- NOTE | 2021-09-09 09:57 | MM ---
Reason for exam: screening (asymptomatic). Last mammogram was performed 1 year ago. History: Patient is postmenopausal. Family history of breast cancer in paternal cousin at age 40. Reductions of both breasts, December 2016. Took hormonal contraceptives for 5 years beginning at age 17. Took estrogen for 4 years beginning at age 43. Physical Findings: A clinical breast exam by your physician is recommended on an annual basis and results should be correlated with mammographic findings. MG 3D Screening Mammo W/Cad Bilateral CC and MLO view(s) were taken. Prior study comparison: September 01, 2020, bilateral MG 3d screening mammo w/cad. August 27, 2019, bilateral MG 3d screening mammo w/cad. The breast tissue is heterogeneously dense. This may lower the sensitivity of mammography. Benign appearing bilateral calcifications. There is chronic nodularity in the left breast, stable. No significant changes when compared with prior studies. ASSESSMENT: Benign, BI-RAD 2 RECOMMENDATION: Routine screening mammogram of both breasts in 1 year.
== END | disposition home or self-care (01) ==
LOC: RADBDWWP 07:08
PROVIDERS: ATTEND Family Medicine
DX: Z12.31 Encounter for screening mammogram for malignant neoplasm of breast (principal); M85.89 Other specified disorders of bone density and structure, multiple sites
CPT/HCPCS: 77063; 77067; 77080

== ENCOUNTER → 2022-07-27 | Outpatient (CLI) | payer MEDICARE ==
--- NOTE | 2022-07-27 22:15 | MR ---
EXAMINATION TYPE: MR shoulder LT wo con DATE OF EXAM: 07/27/2022 COMPARISON: None HISTORY: Left shoulder pain x 1 year, no hx of trauma. Multiplanar multiecho imaging of the left shoulder with no contrast. There is mild shoulder joint effusion and fluid around the biceps tendon. Biceps tendon is intact. Meng bscapularis tendon is intact. The glenoid angela appear intact. There is thickening and increased signal in the supraspinatus tendon at the greater tuberosity of the humerus. There is full-thickness defect. No retraction. There is some spurring at the AC joint. Ther e is mild subacromial impingement. There is some spurring at the glenohumeral joint. No fracture seen . The infraspinatus tendon shows some mild edema without a full-thickness tear. No fracture seen. Sca pula is intact. IMPRESSION: Mild osteoarthritis and shoulder joint effusion. Full-thickness tear of the supraspinatus tendon and changes of tendinitis without retraction. Mild meng bacromial impingement with spurring at the AC joint.
== END | disposition home or self-care (01) ==
LOC: RADMRIMAIN 16:33
PROVIDERS: ATTEND Orthopaedic Surgery
DX: M19.012 Primary osteoarthritis, left shoulder (principal); M75.112 Incomplete rotator cuff tear or rupture of left shoulder, not specified as traumatic

== ENCOUNTER → 2022-09-14 | Outpatient (CLI) | payer MEDICARE ==
--- NOTE | 2022-09-15 07:44 | MM ---
Reason for Exam: Screening (asymptomatic). Last screening mammogram was performed 12 month(s) ago. Patient History: Menarche at age 10. First Full-Term at age 23. Left ovary removed at age 43. Right ovary removed at age 43. Hysterectomy at age 43. Postmenopausal. Estrogen for 4 years from age 43 until age 47. Hormonal Contraceptives, starting at age 17 for 5 years. 12/2016, Bilateral Reduction. Paternal cousin had breast cancer, age 40. Risk Values: Flaca 5 year model risk: 1.9%. NCI Lifetime model risk: 5.9%. Prior Study Comparison: 08/27/2019 Bilateral Screening Mammogram, [facility]. 09/01/2020 Bilateral Screening Mammogram, [facility]. 09/07/2021 Bilateral Screening Mammogram, [facility]. Tissue Density: The breast tissue is heterogeneously dense. This may lower the sensitivity of mammography. Findings: Analyzed By CAD. There is no suspicious group of microcalcifications or new suspicious mass in either breast. Overall Assessment: Benign, BI-RAD 2 Management: Screening Mammogram of both breasts in 1 year. A clinical breast exam by your physician is recommended on an annual basis and results should be correlated with mammographic findings. Electronically signed and approved by: Sherman Gallegos M.D. Radiologis
== END | disposition home or self-care (01) ==
LOC: RADMAMWWP 10:09
PROVIDERS: ATTEND Family Medicine
DX: Z12.31 Encounter for screening mammogram for malignant neoplasm of breast (principal); Z78.0 Asymptomatic menopausal state; Z80.3 Family history of malignant neoplasm of breast; Z90.721 Acquired absence of ovaries, unilateral
CPT/HCPCS: 77063; 77067

== ENCOUNTER 2022-09-30 05:46 | Day surgery (SDC) | payer MEDICARE ==
[2022-09-27 15:51] VITALS: BMI 31.8
--- NOTE | 2022-09-29 22:34 | HP ---
HISTORY AND PHYSICAL DATE OF SURGERY: 09/30/2022. HISTORY OF PRESENT ILLNESS: Charito Coyle is a 67-year-old patient seen with progressive left shoulder pain. After treatment options were discussed with her, she elected to proceed with left shoulder arthroscopy. Consent was obtained. PAST MEDICAL HISTORY: Hypothyroidism, hypertension. PAST SURGICAL HISTORY: Appendectomy, cholecystectomy, and left knee arthroscopy. DAILY MEDICATIONS: 1. Levothyroxine. 2. Requip. 3. [place]umbrota. ALLERGIES: Sulfa. SOCIAL HISTORY: She denies tobacco use. PHYSICAL EVALUATION OF THE LEFT SHOULDER: Flexion is 140 degrees, abduction is 120 degrees, external rotation is 40 degrees with some weakness. She is tender along the anterolateral acromion and rotator cuff insertion. Impingement is positive at 80 degrees. Cross-body adduction sign is positive. Drop-arm sign is positive. Distal neurovascular exam is intact. RADIOGRAPHS: Radiographs of the left shoulder revealed a lateral downsloping an acromion, moderate- to-severe acromioclavicular joint osteoarthritis. An MRI of the left shoulder revealed a large rotator cuff tear with impingement and significant acromioclavicular joint osteoarthritis. IMPRESSION: 1. Left shoulder impingement with rotator cuff tear. 2. Left shoulder acromioclavicular joint osteoarthritis. 3. Hypertension. 4. Hypothyroidism. PLAN: Left shoulder arthroscopy, subacromial decompression, arthroscopic rotator cuff repair, Sophia procedure and debridement. MMODL / IJN: [id number] /
[2022-09-30] MEDS ORDERED: HYDROmorphone 0.5 MG/0.5 ML SYRINGE IVP PRN (06:09)
[2022-09-30] MEDS ORDERED: DEXAMETHASONE SOD PHOSPHATE 4 MG/ML 1 ML VIAL IV ONE (06:09)
[2022-09-30] MEDS ORDERED: ONDANSETRON 4 MG/2 ML VIAL IVP ONE ×2 (06:09→09:12)
[2022-09-30] MEDS: LACTATED RINGERS 1,000 ML IV SCH ×2 (06:42→07:28)
[2022-09-30] MEDS ORDERED: MIDAZOLAM 2 MG/2 ML VIAL IVP ONE ×2 (07:02→07:15)
[2022-09-30] MEDS ORDERED: ROPIVACAINE 5 MG/ML 30 ML VIAL ONE (07:32)
[2022-09-30] MEDS ORDERED: fentaNYL (PF) 50 MCG/ML 2 ML AMP ONE (07:32)
[2022-09-30] MEDS ORDERED: SUCCINYLCHOLINE CHLORIDE 200 MG/10 ML VIAL IV ONE (07:32)
[2022-09-30] MEDS ORDERED: DEXAMETHASONE SOD PHOSPHATE 4 MG/ML 1 ML VIAL ONE (07:32)
[2022-09-30] MEDS ORDERED: MIDAZOLAM 2 MG/2 ML VIAL ONE (07:32)
[2022-09-30] MEDS ORDERED: PROPOFOL 10 MG/ML 20 ML VIAL IV ONE (07:32)
[2022-09-30] MEDS ORDERED: LIDOCAINE 2% INJ 20 MG/ML (2 ML VIAL) ONE (07:32)
--- NOTE | 2022-09-30 09:14 | P.ANPRN ---
Procedure Note - Anesthesia - Nerve Block Performed Left Interscalene Time Out Performed: Yes (07:) Date of Procedure: 09/30/22 Procedure Start Time: Procedure Stop Time: Location of Patient: PreOp Indication: Acute Post-Operative Pain, Requested by Surgeon (Dr byrd) Sedation Type: Sedate with meaningful contact maintained Preparation: Sterile Prep Position: Supine Catheter: None Needle Types: Pajunk Needle Gauge: Other (see comment) (22g) Ultrasound used to visualize needle placement: Yes Ultrasound used to observe medication spread: Yes Injectate: 0.5% Ropivacaine (see comment for volume) (20cc +Decadron 4mg) Blood Aspirated: No Pain Paresthesia on Injection Noted: No Resistance on Injection: Normal Image Stored and Saved: Yes Events: Uneventful and Well Tolerated
[2022-09-30] MEDS ORDERED: LACTATED RINGERS 1,000 ML IV ONE (09:15)
--- NOTE | 2022-09-30 09:19 | P.OP ---
Date of Procedure: 09/30/22 Preoperative Diagnosis: Left shoulder impingement with rotator cuff tear Postoperative Diagnosis: 1. Left shoulder rotator cuff tear 2. Left shoulder impingement 3. Left shoulder partial long head biceps tendon tear 4. Left shoulder grade 2 chondromalacia humeral head Procedure(s) Performed: 1. Left shoulder arthroscopic rotator cuff repair 2. Left shoulder arthroscopic subacromial decompression 3. Left shoulder arthroscopic biceps tenotomy 4. Left shoulder arthroscopic chondroplasty humeral head Implants: 44.75 Arthrex a lock anchors Anesthesia: GETA, regional (Interscalene block) Surgeon: Hakan Galeana Estimated Blood Loss (ml): 11 Pathology: none sent Condition: stable Disposition: PACU Indications for Procedure: 67-year-old patient seen with progressive left shoulder pain. After having treatment options discussed, she elected to proceed with arthroscopy. Operative Findings: see description of procedure Description of Procedure: Patient underwent an interscalene block by department of anesthesia. The patient was then taken to the operative suite. The patient underwent a general anesthetic by the department of anesthesia. The patient was placed into a lateral position and secured. There was appropriate padding of the bony prominence. Left shoulder was then prepped and draped in normal sterile orthopedic fashion. We placed the extremity in 10 pounds of longitudinal traction. A posterior incision was now made for a posterior working portal site. The trocar and cannula were inserted into the glenohumeral joint. Arthroscopy was initiated. Spinal needle was now inserted anteriorly, to ascertain the anterior working portal site. An incision was now made in that area, a trocar was inserted followed by a probe. There was some partial tearing and hyperemia involving long head biceps tendon. There were grade 2 chondromalacia changes about the glenohumeral joint with some osteochondral flap tears present at the humeral head. There was partial tearing involving long head biceps tendon. I performed a biceps tenotomy. I performed a chondroplasty of the humeral head getting down to stable osteochondral tissue. The labrum was again probed and was found to be stable. The residual osteochondral surface appeared stable. Instruments now removed from glenohumeral joint. Utilizing the posterior working portal site, the trocar and cannula were ins erted into the subacromial space. Arthroscopy initiated. I made an incision 2 fingerbreadths lateral to the acromion. I introduced my trocar followed by my [employer]throCare ablator. I now began ablating thick subacromial bursal tissue, which exposed the undersurface of the anterior acromion. There was diminished subacromial space. There was a very prominent anterior acromion. A motorized bur was introduced and a subacromial decompression was performed. I also excised some osteophytes off the inferior aspect of the distal clavicle. The AC joint was visualized and noted to be moderately arthritic. I did not think enough toward a Sophia procedure. I turned my attention to the rotator cuff tendon. There was a tear along the distal supraspinatus. I debrided the margins of tendon getting down to stable tendon tissue. The defect measured approximately 3 cm. I created an bundle sorter portal site off the lateral acromion. I abraded the footprint with a motorized bur. I punched 2 holes for medial row fixation introduced 2 anchors medially with 2 sutures each. I now passed all 8 limbs of suture through good bites of rotator cuff tendon. I now punched 2 holes for lateral fixation. I crisscrossed the sutures. I passed 4 suture limbs through the eyelet of a 4.75 Arthrex swivel lock anchor. I placed the eyelet into the pre-punch hole anterior laterally and then tension all 4 suture limbs and deployed the ankle with good fixation noted. I now passed the remaining 4 suture limbs through the eyelet of a 4.75 Arthrex swivel lock anchor. I placed the eyelet into the pre-punch hole. I tensioned all 4 limbs of suture and deployed the anchor was good fixation noted. All residual suture limbs were now clipped. We had good compression of the tendon along the entire footprint. Instruments now removed from the portal sites. All portal sites were approximated with nylon suture. Sterile dressings were applied followed by a shoulder immobilizer. The patient was awakened, transferred to a bed, and taken to recovery in stable condition.
[2022-09-30 09:28] VITALS: RESP 16; TEMP 97.6
[2022-09-30 10:17] VITALS: BP 127/77; PULSE 63
== END 2022-09-30 11:02 | disposition home or self-care (01) ==
LOC: OR 05:46
PROVIDERS: ATTEND Orthopaedic Surgery
DX: M75.42 Impingement syndrome of left shoulder (principal); G89.29 Other chronic pain; M75.102 Unspecified rotator cuff tear or rupture of left shoulder, not specified as traumatic; S46.112A Strain of muscle, fascia and tendon of long head of biceps, left arm, initial encounter; M94.242 Chondromalacia, joints of left hand; M19.012 Primary osteoarthritis, left shoulder; I10 Essential (primary) hypertension; E03.9 Hypothyroidism, unspecified; Z90.49 Acquired absence of other specified parts of digestive tract; Z98.890 Other specified postprocedural states; Z79.890 Hormone replacement therapy; Z88.2 Allergy status to sulfonamides
CPT/HCPCS: 64415; 76942; 29827; 29826; C1713; J2250; J0330; J1100; J0690; J2405; J3010; J2795; J2704; J1170; J2001

== ENCOUNTER 2023-06-18 13:13 | Emergency (ER) | payer MEDICARE ==
[2023-06-18 13:18] VITALS: BP 146/80; PULSE 69; RESP 18; TEMP 97.3
[2023-06-18] MEDS ORDERED: FLUORESCEIN STRIPS 1 MG STRIP BOTH EYES ONE (13:28)
[2023-06-18] MEDS ORDERED: PROPARACAINE 0.5% OPHTH DROPS 15 ML BTL BOTH EYES STA (13:28)
--- NOTE | 2023-06-18 13:57 | ED ---
General Adult HPI - General Chief complaint: Eye Problems Stated complaint: L EYE VISUAL DISTURBANCE Time Seen by Provider: 06/18/23 13:27 Source: patient Mode of arrival: ambulatory Limitations: no limitations - History of Present Illness Initial comments: Dictation was produced using [employer] dictation software. please excuse any grammatical, word or spelling errors. Chief Complaint: 67-year-old female presents with left eye floater History of Present Illness: Patient 67-year-old male presents emergency Department with proximal joint 2 hours of left eye floater states that it looks like a brown worm in her left supratemporal visual field. Denies any eye pain. Patient has no history of ocular medical history. Denies any headache. No eye pain. Patient was at the [facility] 3 weeks ago with normal findings. The ROS documented in this emergency department record has been reviewed and confirmed by me. Those systems with pertinent positive or negative responses have been documented in the HPI. All other systems are other negative and/or noncontributory. - Related Data Home Medications Medication Instructions Recorded Confirmed Levothyroxine Sodium [Synthroid] 50 mcg PO DAILY 07/10/14 09/30/22 clonazePAM [KlonoPIN] 0.5 mg PO HS 07/10/14 09/30/22 HYDROcodone/APAP 7.5-325MG [[place] 1 tab PO Q6HR PRN 11/15/19 09/30/22 7.5-325] Ibuprofen [Motrin] 600 mg PO Q8HR PRN 11/15/19 09/30/22 Pramipexole [Mirapex] 0.5 mg PO TID 09/30/22 09/30/22 Previous Rx's Medication Instructions Recorded HYDROcodone/APAP 7.5-325MG [[place] 1 each PO Q6HR PRN #28 tab 09/30/22 7.5-325] Allergies Allergy/AdvReac Type Severity Reaction Status Date / Time nitrofurantoin Allergy Itching Verified 06/18/23 13:17 [From Macrobid] Sulfa (Sulfonamide Allergy lethargy,na Verified 06/18/23 13:17 Antibiotics) usea Review of Systems ROS Statement: Those systems with pertinent positive or pertinent negative responses have been documented in the HPI. ROS Other: All systems not noted in ROS Statement are negative. Past Medical History Past Medical History: Musculoskeletal Disorder, Osteoarthritis (OA), Thyroid Disorder Additional Past Medical History / Comment(s): hypothyroidism, restless leg syndrome, osteoporosis, , History of Any Multi-Drug Resistant Organisms: None Reported Past Surgical History: Appendectomy, Back Surgery, Bladder Surgery, Breast Surgery, Cholecystectomy, Hysterectomy, Joint Replacement, Orthopedic Surgery Additional Past Surgical History / Comment(s): arthroscopies left knee,hemorrhoidectomy;bladder suspension, left knee replacement, breast reduction Past Anesthesia/Blood Transfusion Reactions: Motion Sickness, Postoperative Nausea & Vomiting (PONV) Additional Past Anesthesia/Blood Transfusion Reaction / Comment(s): one time episode after melvi. Past Psychological History: No Psychological Hx Reported Smoking Status: Former smoker Past Alcohol Use History: None Reported Past Drug Use History: None Reported - Past Family History Mother Family Medical History: Coronary Artery Disease (CAD) Father Family Medical History: Cancer, Hypertension Sister(s) Family Medical History: No Reported History Brother(s) Family Medical History: Cancer General Exam - General Exam Comments Initial Comments: PHYSICAL EXAM: General Impression: Alert and oriented x3, not in acute distress HEENT: Normocephalic atraumatic, extra-ocular movements intact, pupils equal and reactive to light bilaterally, mucous membranes moist. Cardiovascular: Heart regular rate and rhythm Chest: Able to complete full sentences, no retractions, no tachypnea Musculoskeletal: no peripheral edema Motor: no focal deficits noted Neurological: CN II-XII grossly intact, no focal motor or sensory deficits noted Skin: Intact with no visualized rashes Psych: Normal affect and mood Limitations: no limitations Course Vital Signs 06/18/23 13:15 Temperature 97.3 F L Pulse Rate 69 Respiratory 18 Rate Blood Pressure 146/80 O2 Sat by Pulse 100 Oximetry - Reevaluation(s) Reevaluation #1: 06/18/23 13:56 Intraocular pressure in the left eye was 14. No corneal abnormalities with fluorescein testing. Pupil react to light and accommodation. Visual acuity. 20/15 bilateral, 20/15 right, 20/20 left Medical Decision Making - Medical Decision Making Was pt. sent in by a medical professional or institution (, PA, HEAD ANIMAL KEEPER, urgent care, hospital, or detention...) When possible be specific @ -No Did you speak to anyone other than the patient for history (EMS, parent, family, police, friend...)? What history was obtained from this source @ -No Did you review nursing and triage notes (agree or disagree)? Why? @ -I reviewed and agree with nursing and triage notes Were old charts reviewed (outside hosp., previous admission, EMS record, old EKG, old radiological studies, urgent care reports/EKG's, detention records)? Report findings @ -No old charts were reviewed Differential Diagnosis (chest pain, altered mental status, abdominal pain women, abdominal pain men, vaginal bleeding, musculoskeletal, weakness, fever, dyspnea, syncope, headache, dizziness, GI bleed, back pain, seizure, CVA, palpatations, mental health)? @ -not applicable EKG interpreted by me (3pts min.). @ -None done X-rays interpreted by me (1pt min.). @ -None done CT interpreted by me (1pt min.). @ -None done U/S interpreted by me (1pt. min.). @ -None done What testing was considered but not performed or refused? (CT, X-rays, U/S, labs)? Why? @ -None What meds were considered but not given or refused? Why? @ -None Did you discuss the management of the patient with other professionals (etta escobar i.e. , PA, HEAD ANIMAL KEEPER, lab, RT, psych nurse, social service coordinator, data entry processor, teacher, annual giving officer, continuous pillowcase cutter)? Give summary @ -Case discussed with Dr. Mckeon recommends discharge patient follow-up with ophthalmology Was smoking cessation discussed for >3mins.? @ -No Was critical care preformed (if so, how long)? @ -No Were there social determinants of health that impacted care today? How? (Homelessness, low income, unemployed, alcoholism, drug addiction, transportation, low edu. Level, literacy, decrease access to med. care, intermediate, rehab)? @ -No Was there de-escalation of care discussed even if they declined (Discuss DNR or withdrawal of care, Hospice)? DNR status @ -No What co-morbidities impacted this encounter? (DM, HTN, Smoking, COPD, CAD, Cancer, CVA, ARF, Chemo, Hep., AIDS, mental health diagnosis, sleep apnea, morbid obesity)? @ -None Was patient admitted / discharged? Hospital course, mention meds given and route, prescriptions, significant lab abnormalities, going to OR and other pertinent info. @ -67-year-old female presents emergency Department with visual floater. Vital signs stable. Visual exam is unremarkable. Case discussed with on-call ophthalmology, Dr. Mckeon states that patient is stable for discharge to follow- up with ophthalmology early next week. Patient is notified of this recommendation by Optho she states that she will follow up with her usual child and family services specialist, Dr. Berger Undiagnosed new problem with uncertain prognosis? @ -No Drug Therapy requiring intensive monitoring for toxicity (Heparin, Nitro, Insulin, Cardizem)? @ -No Were any procedures done? @ -No Diagnosis/symptom? Acute, or Chronic, or Acute on Chronic? Uncomplicated (without systemic symptoms) or Complicated (systemic symptoms)? @ -visual floaters Side effects of treatment? @ -No Exacerbation, Progression, or Severe Exacerbation? @ -No Poses a threat to life or bodily function? How? (Chest pain, [place], MA, pneumonia, PE, COPD, DKA, ARF, appy, cholecystitis, CVA, Diverticulitis, Homicidal, Suicidal, threat to staff... and all critical care pts) @ -No Disposition Clinical Impression: Visual floaters Disposition: HOME SELF-CARE Condition: Good Instructions (If sedation given, give patient instructions): Visual Floaters (ED) Is patient prescribed a controlled substance at d/c from ED?: No Referrals: Markel Mckeon MD [STAFF PHYSICIAN] - 1-2 days Baudilio Berger MD [STAFF PHYSICIAN] - 1-2 days Time of Disposition: 14:09
== END 2023-06-18 14:15 | disposition home or self-care (01) ==
LOC: EC 13:13
DX: H43.392 Other vitreous opacities, left eye (principal); E03.9 Hypothyroidism, unspecified; M19.90 Unspecified osteoarthritis, unspecified site; Z79.890 Hormone replacement therapy; Z79.899 Other long term (current) drug therapy; Z87.891 Personal history of nicotine dependence; Z88.1 Allergy status to other antibiotic agents; Z88.8 Allergy status to other drugs, medicaments and biological substances; Z90.49 Acquired absence of other specified parts of digestive tract
CPT/HCPCS: 99283

== ENCOUNTER → 2023-09-21 | Outpatient (CLI) | payer MEDICARE ==
--- NOTE | 2023-09-21 11:37 | BD ---
EXAMINATION TYPE: Axial Bone Density DATE OF EXAM: 09/21/2023 CLINICAL HISTORY: 68 years old Female. ICD-10 CODE: M810 AGE RELATED OSTEO Height: 62.7in Weight: 197lb FRAX RISK QUESTIONS: Secondary Osteoporosis: RISK FACTORS HISTORY OF: Surgery to Spine/Hip(right/left)/Wrist (right/left): lumbar spine spacer When: 2020 Family History of Osteoporosis: yes Active: yes Postmenopausal woman: yes Take estrogen and/or progesterone medications: in the past, none current How long: about 1 year MEDICATIONS: Thyroid Medications: Which medication: Levothyroxine How Long: about 8 years Additional Medications: Additional History: EXAM MEASUREMENTS: Bone mineral densitometry was performed using the [employer] System. Bone mineral density about the R hip (g/cm2): 0.834 Bone mineral density about the L hip (g/cm2): 0.791 T Score values are as follows: -----R Neck: -1.4 -----L Neck: -2.0 -----R Total: -1.4 -----L Total: -1.7 Z Score values are as follows: -----R Neck: -0.3 -----L Neck: -0.8 -----R Total: -0.5 -----L Total: -0.8 Bone mineral density has: Increased 0.7% since study of: 09-07-21 FRAX%s: The graph provided illustrates a 10.8% chance for a major osteoporotic fx and a 2.0% chance f or the hips probability for fx in 10 years time. IMPRESSION: Osteopenia (T Score between -2.5 and -1). There is slightly increased risk of fracture and the patient may be considered for treatment. Re-Screen 2-5 years. NOTE: T-SCORE=SD OF THE YOUNG ADULT MEAN.
--- NOTE | 2023-09-22 08:07 | MM ---
Reason for Exam: Screening (asymptomatic). Last screening mammogram was performed 12 month(s) ago. Patient History: Menarche at age 10. First Full-Term at age 23. Left ovary removed at age 43. Right ovary removed at age 43. Hysterectomy at age 43. Postmenopausal. Estrogen for 4 years from age 43 until age 47. Hormonal Contraceptives, starting at age 17 for 5 years. 12/2016, Bilateral Reduction. Paternal cousin had breast cancer, age 40. Risk Values: Flaca 5 year model risk: 1.9%. NCI Lifetime model risk: 5.6%. Prior Study Comparison: 09/29/2017 Bilateral Screening Mammogram, [facility]. 08/18/2018 Bilateral Screening Mammogram, [facility]. 08/27/2019 Bilateral Screening Mammogram, [facility]. 09/01/2020 Bilateral Screening Mammogram, [facility]. 09/07/2021 Bilateral Screening Mammogram, [facility]. 09/14/2022 Bilateral MG 3D screening mammo w/cad, [facility]. Tissue Density: The breast tissue is heterogeneously dense. This may lower the sensitivity of mammography. Findings: Analyzed By CAD. Asymmetric nodular density upper outer left breast 12.4 cm from the nipple. Additional views recommended. No additional lung masses seen. Benign-appearing calcifications bilaterally. Overall Assessment: Incomplete: need additional imaging evaluation, BI-RAD 0 Management: Diagnostic Mammogram of the left breast. . Patient should continue monthly self-breast exams. A clinical breast exam by your physician is recommended on an annual basis. This exam should not preclude additional follow-up of suspicious palpable abnormalities. Note on Flaca scores and lifetime risk: 1. A Flaca score greater than 3% is considered moderate risk. If this is the case, consider specialist referral to assess eligibility for a risk reducing agent. 2. If overall lifetime risk for the development of breast cancer is 20% or higher, the patient may qualify for future screening with alternating mammogram and breast MRI. Electronically signed and approved by: Sherman Gallegos M.D. Radiologis
== END | disposition home or self-care (01) ==
LOC: RADMAMWWP 08:34
PROVIDERS: ATTEND Family Medicine
DX: Z12.31 Encounter for screening mammogram for malignant neoplasm of breast (principal); M81.0 Age-related osteoporosis without current pathological fracture; M85.89 Other specified disorders of bone density and structure, multiple sites; Z78.0 Asymptomatic menopausal state; Z80.3 Family history of malignant neoplasm of breast
CPT/HCPCS: 77063; 77067; 77080

== ENCOUNTER → 2023-09-26 | Outpatient (CLI) | payer MEDICARE ==
--- NOTE | 2023-09-26 15:23 | USB ---
Reason for Exam: Additional evaluation requested from abnormal screening. Patient History: Menarche at age 10. First Full-Term at age 23. Left ovary removed at age 43. Right ovary removed at age 43. Hysterectomy at age 43. Postmenopausal. Patient has history of breast feeding. Estrogen for 4 years from age 43 until age 47. Hormonal Contraceptives, starting at age 17 for 5 years. 12/2016, Bilateral Reduction. Paternal cousin had breast cancer, age 40. Risk Values: Flaca 5 year model risk: 1.9%. NCI Lifetime model risk: 5.6%. Technique: Method: Targeted. Prior Study Comparison: 09/07/2021 Bilateral Screening Mammogram, [facility]. 09/14/2022 Bilateral MG 3D screening mammo w/cad, [facility]. 09/21/2023 Bilateral MG 3D screening mammo w/cad, [facility]. Findings: The upper outer quadrant of the left breast, the axilla of the left breast and the retroareolar of the left breast were scanned. Technique utilized:US breast workup limited LT Image; Ultrasound imaging of: Area of concern, retroareolar region and axilla. Spiculated mass on mammography 09/26/2023 10.9 cm from nipple on MLO view measuring 6 mm slice 22 of 69 may correlate with this lesion on ultrasound with hypoechoic echotexture. However it is not definitive. Mammographic stereotactic core biopsy recommended. Short-term follow-up ultrasound after biopsy recommended. Overall Assessment: Suspicious, BI-RAD 4 Management: Stereotactic Core Biopsy of the left breast. A clinical breast exam by your physician is recommended on an annual basis and results should be correlated with mammographic findings. This exam should not preclude additional follow-up of suspicious palpable abnormalities. Results were given to the patient verbally at the time of exam. Electronically signed and approved by: Duane Green DO
== END | disposition home or self-care (01) ==
LOC: RADMAMWWP 14:15
PROVIDERS: ATTEND Family Medicine
DX: R92.8 Other abnormal and inconclusive findings on diagnostic imaging of breast (principal); Z78.0 Asymptomatic menopausal state; Z80.3 Family history of malignant neoplasm of breast
CPT/HCPCS: 77065; 76642; G0279; 77061

== ENCOUNTER → 2023-10-07 | Day surgery (SDC) | payer MEDICARE ==
[2023-10-07 11:03] VITALS: RESP 16
[2023-10-07 12:19] VITALS: BP 166/81; PULSE 70; TEMP 98.1
--- NOTE | 2023-10-14 11:59 | MM ---
Risk Values: Flaca 5 year model risk: 1.9%. NCI Lifetime model risk: 5.6%. Prior Study Comparison: 09/14/2022 Bilateral MG 3D screening mammo w/cad, [facility]. 09/21/2023 Bilateral MG 3D screening mammo w/cad, [facility]. 09/26/2023 Left MG 3D work up w/cad , [facility]. Pathology Description: Marker Left Behind. Approach: Lateral to Medial Needle Type: Eviva Cores: 13 Skin Nicks: 1 Gauge: 9 NO PROBLEMS/DENSITY/POSTERIOR ON LATERAL The procedure of stereotactic guided core biopsy was explained to the patient. Benefits, alternatives, and risks were discussed. An informed consent was then obtained. [facility]. Shortness pathway was lateral approach. A vacuum assisted biopsy gun was used to obtain multiple core samples. The patient tolerated the procedure well without any immediate complication. The patient was kept in the radiology department for short stay after the procedure and then discharged home in stable condition. Targeted calcifications are identified in specimen mammogram. Post biopsy mammogram shows the clip to appear in satisfactory position relative to the targeted area of concern on the preprocedure images. Impression: SUCCESSFUL, UNCOMPLICATED STEREOTACTIC GUIDED CORE BIOPSY OF AREA OF CONCERN IN THE BREAST. Pathology Results: Result: Malignant, Invasive ductal carcinoma. LEFT BREAST, STEREOTACTIC CORE BIOPSY: Invasive ductal carcinoma, Grade 1, with focal microcalcification (see Surgical Pathology Cancer Case Summary and comment). Overall Assessment: Malignant Management: Surgical Consultation of the left breast. Electronically signed and approved by: Duane Green DO
== END ==
LOC: RADMAMWWP 10:31
PROVIDERS: ATTEND Family Medicine
DX: C50.912 Malignant neoplasm of unspecified site of left female breast (principal)
CPT/HCPCS: 88305; 88342; 88341; 19081; A4648; J2001